=== PATIENT | female | born 1950 | race Caucasian/White ===

== ENCOUNTER 2016-08-24 10:57 | Outpatient (CLI) | payer MEDICARE | END 2016-08-24 10:58 | disposition home or self-care (01) | DX: M05.79 Rheumatoid arthritis with rheumatoid factor of multiple sites without organ or systems involvement (principal); Z79.899 Other long term (current) drug therapy; M06.9 Rheumatoid arthritis, unspecified ==

== ENCOUNTER 2016-11-05 08:33 | Outpatient (CLI) | payer MEDICARE | END 2016-11-05 08:34 | disposition home or self-care (01) | DX: M06.9 Rheumatoid arthritis, unspecified (principal); Z79.899 Other long term (current) drug therapy ==

== ENCOUNTER 2017-01-11 10:08 | Outpatient (CLI) | payer MEDICARE | END 2017-01-11 10:09 | disposition home or self-care (01) | DX: R59.9 Enlarged lymph nodes, unspecified (principal) ==

== ENCOUNTER 2017-02-10 09:15 | Outpatient (CLI) | payer MEDICARE ==
[2017-02-10 17:56] LABS: ALBUMIN/GLOBULIN RATIO 1.7 (1.0-2.2); BILIRUBIN,TOTAL 0.8 mg/dL (0.2-1.0); CREATININE 0.7 mg/dL (0.4-1.0); POTASSIUM 4.6 mmol/L (3.5-5.0); TOTAL PROTEIN 6.7 g/dL (6.7-8.2)
[2017-02-10 18:05] LABS: BASOPHILS # (AUTO) 0.1 10^3/uL (0.0-0.1); BASOPHILS % (AUTO) 1.3 %; EOSINOPHILS # (AUTO) 0.3 10^3/uL (0.0-0.7); EOSINOPHILS % (AUTO) 4.3 %; HCT - HEMATOCRIT 38.2 % (37.0-47.0); HGB - HEMOGLOBIN 11.8 g/dL (12.0-16.0); LYMPHOCYTES # (AUTO) 2.5 10^3/uL (1.5-3.5); LYMPHOCYTES % (AUTO) 39.1 %; MEAN CORPUSCULAR HEMOGLOBIN 20.5 pg (27.0-31.0); MEAN CORPUSCULAR HGB CONC 30.9 g/dL (32.0-36.0); MEAN CORPUSCULAR VOLUME 66.5 fL (81.0-99.0); MEAN PLATELET VOLUME 9.7 fL (7.9-10.8); MONOCYTES # (AUTO) 0.4 10^3/uL (0.0-1.0); MONOCYTES % (AUTO) 6.7 %; NEUTROPHILS # (AUTO) 3.1 10^3/uL (1.5-6.6); NEUTROPHILS % (AUTO) 48.6 %; NUCLEATED RED BLOOD CELLS AUTO 0.1 /100WBC; RED BLOOD COUNT 5.75 10^6/uL (4.20-5.40); UNCORRECTED WHITE BLOOD COUNT 6.4 x10^3/uL; WHITE BLOOD COUNT 6.4 x10^3/uL (4.8-10.8)
[2017-02-10 18:22] LABS: PLATELET ESTIMATE, MANUAL NORMAL (130-450,000) (NORMAL); PLATELET MORPHOLOGY NORMAL APPEARANCE (NORMAL)
== END 2017-02-10 09:16 | disposition home or self-care (01) ==
LOC: LAB.R 09:15
PROVIDERS: ATTEND Nurse Practitioner Primary Care
DX: M06.9 Rheumatoid arthritis, unspecified (principal); Z79.899 Other long term (current) drug therapy
CPT/HCPCS: 80053; 85025

== ENCOUNTER 2017-04-11 08:33 | Day surgery (SDC) | payer MEDICARE ==
[2017-04-11] MEDS ORDERED: LACTATED RINGERS 1,000 ML IV ONE (08:38)
[2017-04-11] MEDS ORDERED: MIDAZOLAM 2 MG/2 ML VIAL IVP ONE (10:40)
[2017-04-11] MEDS ORDERED: fentaNYL 100 MCG/2 ML VIAL IVP ONE (10:40)
[2017-04-11 12:00] VITALS: BP 106/65
[2017-04-11] MEDS ORDERED: ONDANSETRON ODT 4 MG TABLET ONE (12:10)
== END 2017-04-11 08:34 | disposition home or self-care (01) ==
LOC: SDS 08:33
PROVIDERS: ATTEND Surgery
PROC: 0DJD8ZZ Inspection of Lower Intestinal Tract, Via Natural or Artificial Opening Endoscopic (ICD-10-PCS; principal; 2017-04-11 09:45)
DX: Z12.11 Encounter for screening for malignant neoplasm of colon (principal); K64.8 Other hemorrhoids; K57.90 Diverticulosis of intestine, part unspecified, without perforation or abscess without bleeding; J45.909 Unspecified asthma, uncomplicated; Z87.891 Personal history of nicotine dependence
CPT/HCPCS: 45378; J7120; Q0162

== ENCOUNTER 2017-05-18 09:03 | Outpatient (CLI) | payer MEDICARE ==
[2017-05-18 13:47] LABS: BASOPHILS % (AUTO) 0.6 %; EOSINOPHILS # (AUTO) 0.2 10^3/uL (0.0-0.7); EOSINOPHILS % (AUTO) 3.2 %; HCT - HEMATOCRIT 35.9 % (37.0-47.0); HGB - HEMOGLOBIN 11.4 g/dL (12.0-16.0); LYMPHOCYTES # (AUTO) 2.3 10^3/uL (1.5-3.5); LYMPHOCYTES % (AUTO) 37.9 %; MEAN CORPUSCULAR HEMOGLOBIN 20.5 pg (27.0-31.0); MEAN CORPUSCULAR HGB CONC 31.7 g/dL (32.0-36.0); MEAN CORPUSCULAR VOLUME 64.8 fL (81.0-99.0); MEAN PLATELET VOLUME 9.6 fL (7.9-10.8); MONOCYTES # (AUTO) 0.5 10^3/uL (0.0-1.0); MONOCYTES % (AUTO) 8.1 %; NEUTROPHILS # (AUTO) 3.1 10^3/uL (1.5-6.6); NEUTROPHILS % (AUTO) 50.2 %; RED BLOOD COUNT 5.54 10^6/uL (4.20-5.40); RED CELL DISTRIBUTION WIDTH 17.1 % (12.0-15.0); UNCORRECTED WHITE BLOOD COUNT 6.1 x10^3/uL; WHITE BLOOD COUNT 6.1 x10^3/uL (4.8-10.8)
[2017-05-18 13:57] LABS: ALBUMIN/GLOBULIN RATIO 1.4 (1.0-2.2); BILIRUBIN,TOTAL 0.6 mg/dL (0.2-1.0); CALCIUM 9.4 mg/dL (8.5-10.3); CREATININE 0.6 mg/dL (0.4-1.0); POTASSIUM 4.1 mmol/L (3.5-5.0); TOTAL PROTEIN 6.8 g/dL (6.7-8.2)
== END 2017-05-18 09:04 | disposition home or self-care (01) ==
LOC: LAB.R 09:03
PROVIDERS: ATTEND Nurse Practitioner Primary Care
DX: M06.9 Rheumatoid arthritis, unspecified (principal); Z79.899 Other long term (current) drug therapy
CPT/HCPCS: 80053; 85025

== ENCOUNTER 2017-08-09 08:59 | Outpatient (CLI) | payer MEDICARE ==
[2017-08-09 13:19] LABS: CHOL/HDL RATIO 3.2 (<4.4); CHOLESTEROL 231 mg/dL; HDL CHOLESTEROL 72 mg/dL; LDL CHOLESTEROL,CALCULATED 143 mg/dL; VLDL CHOLESTEROL 16 mg/dL
[2017-08-09 13:26] LABS: BASOPHILS % (AUTO) 0.8 %; EOSINOPHILS # (AUTO) 0.2 10^3/uL (0.0-0.7); EOSINOPHILS % (AUTO) 3.3 %; HGB - HEMOGLOBIN 11.5 g/dL (12.0-16.0); LYMPHOCYTES # (AUTO) 1.2 10^3/uL (1.5-3.5); LYMPHOCYTES % (AUTO) 21.9 %; MEAN CORPUSCULAR HEMOGLOBIN 20.5 pg (27.0-31.0); MEAN CORPUSCULAR HGB CONC 31.5 g/dL (32.0-36.0); MEAN CORPUSCULAR VOLUME 65.1 fL (81.0-99.0); MEAN PLATELET VOLUME 9.6 fL (7.9-10.8); MONOCYTES # (AUTO) 0.6 10^3/uL (0.0-1.0); MONOCYTES % (AUTO) 11.3 %; NEUTROPHILS # (AUTO) 3.5 10^3/uL (1.5-6.6); NEUTROPHILS % (AUTO) 62.7 %; PLT - PLATELET COUNT 309 10^3/uL (130-450); RED BLOOD COUNT 5.59 10^6/uL (4.20-5.40); RED CELL DISTRIBUTION WIDTH 17.1 % (12.0-15.0); WHITE BLOOD COUNT 5.7 x10^3/uL (4.8-10.8)
[2017-08-09 13:28] LABS: ALBUMIN 4.1 g/dL (3.2-5.5); ALBUMIN/GLOBULIN RATIO 1.5 (1.0-2.2); BILIRUBIN,TOTAL 0.9 mg/dL (0.2-1.0); CALCIUM 9.4 mg/dL (8.5-10.3); CREATININE 0.8 mg/dL (0.4-1.0); TOTAL PROTEIN 6.9 g/dL (6.7-8.2)
== END 2017-08-09 09:00 | disposition home or self-care (01) ==
LOC: LAB.R 08:59
PROVIDERS: ATTEND Nurse Practitioner Primary Care
DX: Z13.29 Encounter for screening for other suspected endocrine disorder (principal); E78.5 Hyperlipidemia, unspecified; M06.9 Rheumatoid arthritis, unspecified; Z79.899 Other long term (current) drug therapy
CPT/HCPCS: 80053; 80061; 83721; 84443; 85025

== ENCOUNTER 2017-10-24 11:53 | Outpatient (CLI) | payer MEDICARE ==
--- NOTE | 2017-10-24 13:23 | XRAY Report ---
RIGHT HIP AND PELVIS: 10/24/2017 CLINICAL INDICATION: Hip pain. FINDINGS: Frontal view of the hips and pelvis and frogleg lateral view of the right hip demonstrate moderate osteoarthritis. There is no evidence of acute fracture or dislocation. No radiopaque foreign body seen in the soft tissues. IMPRESSION: MODERATE OSTEOARTHRITIS. TD: 10/24/2017 13:22
--- NOTE | 2017-10-24 13:23 | XRAY Report ---
THREE VIEW LUMBAR SPINE: 10/24/2017 CLINICAL INDICATION: Back pain. FINDINGS: AP, lateral, coned down views of the lumbar spine demonstrate mild degenerative disk disease. There is no evidence of compression fracture. Mild degenerative levoscoliosis is seen. The bowel gas pattern appears unremarkable. IMPRESSION: MILD DEGENERATIVE CHANGES, WITH DEGENERATIVE LEVOSCOLIOSIS. TD: 10/24/2017 13:21
== END 2017-10-24 11:54 | disposition home or self-care (01) ==
LOC: DI 11:53
PROVIDERS: ATTEND Physician Assistant Medical
DX: M51.36 Other intervertebral disc degeneration, lumbar region (principal); M16.11 Unilateral primary osteoarthritis, right hip
CPT/HCPCS: 72100

== ENCOUNTER 2017-11-11 08:00 | Outpatient (CLI) | payer MEDICARE ==
[2017-11-11 13:42] LABS: ALBUMIN 3.8 g/dL (3.2-5.5); ALBUMIN/GLOBULIN RATIO 1.4 (1.0-2.2); BILIRUBIN,TOTAL 0.6 mg/dL (0.2-1.0); CREATININE 0.7 mg/dL (0.4-1.0); TOTAL PROTEIN 6.6 g/dL (6.7-8.2)
[2017-11-11 14:08] LABS: BASOPHILS # (AUTO) 0.2 10^3/uL (0.0-0.1); BASOPHILS % (AUTO) 2.1 %; EOSINOPHILS # (AUTO) 0.2 10^3/uL (0.0-0.7); EOSINOPHILS % (AUTO) 2.3 %; HGB - HEMOGLOBIN 11.3 g/dL (12.0-16.0); LYMPHOCYTES # (AUTO) 2.9 10^3/uL (1.5-3.5); LYMPHOCYTES % (AUTO) 28.4 %; MEAN CORPUSCULAR HEMOGLOBIN 20.4 pg (27.0-31.0); MEAN CORPUSCULAR HGB CONC 30.8 g/dL (32.0-36.0); MONOCYTES # (AUTO) 0.5 10^3/uL (0.0-1.0); MONOCYTES % (AUTO) 5.1 %; NEUTROPHILS # (AUTO) 6.3 10^3/uL (1.5-6.6); NEUTROPHILS % (AUTO) 62.1 %; PLT - PLATELET COUNT 393 10^3/uL (130-450); RED BLOOD COUNT 5.53 10^6/uL (4.20-5.40); RED CELL DISTRIBUTION WIDTH 16.7 % (12.0-15.0); WHITE BLOOD COUNT 10.2 x10^3/uL (4.8-10.8)
== END 2017-11-11 08:01 | disposition home or self-care (01) ==
LOC: LAB.R 08:00
PROVIDERS: ATTEND Nurse Practitioner Primary Care
DX: M06.9 Rheumatoid arthritis, unspecified (principal); Z79.899 Other long term (current) drug therapy
CPT/HCPCS: 80053; 85025

== ENCOUNTER 2018-02-16 09:19 | Outpatient (CLI) | payer MEDICARE ==
[2018-02-16 13:09] LABS: ALBUMIN 4.4 g/dL (3.2-5.5); ALBUMIN/GLOBULIN RATIO 1.6 (1.0-2.2); BASOPHILS % (AUTO) 0.6 %; BILIRUBIN,TOTAL 0.7 mg/dL (0.2-1.0); CALCIUM 9.5 mg/dL (8.5-10.3); CREATININE 0.6 mg/dL (0.4-1.0); EOSINOPHILS # (AUTO) 0.2 10^3/uL (0.0-0.7); EOSINOPHILS % (AUTO) 3.1 %; HGB - HEMOGLOBIN 11.8 g/dL (12.0-16.0); LYMPHOCYTES # (AUTO) 2.5 10^3/uL (1.5-3.5); LYMPHOCYTES % (AUTO) 35.8 %; MEAN CORPUSCULAR HEMOGLOBIN 20.3 pg (27.0-31.0); MEAN CORPUSCULAR HGB CONC 31.3 g/dL (32.0-36.0); MEAN CORPUSCULAR VOLUME 64.8 fL (81.0-99.0); MEAN PLATELET VOLUME 9.6 fL (7.9-10.8); MONOCYTES # (AUTO) 0.5 10^3/uL (0.0-1.0); MONOCYTES % (AUTO) 6.7 %; NEUTROPHILS # (AUTO) 3.8 10^3/uL (1.5-6.6); NEUTROPHILS % (AUTO) 53.8 %; PLT - PLATELET COUNT 386 10^3/uL (130-450); RED BLOOD COUNT 5.81 10^6/uL (4.20-5.40); RED CELL DISTRIBUTION WIDTH 16.9 % (12.0-15.0); TOTAL PROTEIN 7.2 g/dL (6.7-8.2); WHITE BLOOD COUNT 7.1 x10^3/uL (4.8-10.8)
[2018-02-16 13:55] LABS: PLATELET ESTIMATE, MANUAL NORMAL (130-450,000) (NORMAL); PLATELET MORPHOLOGY NORMAL APPEARANCE (NORMAL)
== END 2018-02-16 09:20 | disposition home or self-care (01) ==
LOC: LAB.R 09:19
PROVIDERS: ATTEND Nurse Practitioner Primary Care
DX: M06.9 Rheumatoid arthritis, unspecified (principal); Z79.899 Other long term (current) drug therapy
CPT/HCPCS: 80053; 85025

== ENCOUNTER 2018-03-08 10:10 | Outpatient (CLI) | payer MEDICARE ==
[2018-03-09 11:43] LABS: HEPATITIS C ANTIBODY NON-REACTIVE (NON-REACTIVE)
[2018-03-09 11:45] LABS: HEPATITIS B SURFACE ANTIGEN NON-REACTIVE (NON-REACTIVE)
== END 2018-03-08 10:11 | disposition home or self-care (01) ==
LOC: LAB 10:10
PROVIDERS: ATTEND Internal Medicine Rheumatology
DX: M05.79 Rheumatoid arthritis with rheumatoid factor of multiple sites without organ or systems involvement (principal); Z79.899 Other long term (current) drug therapy
CPT/HCPCS: 36415; 81599; 86480; 86803; 87340

== ENCOUNTER 2018-05-03 10:38 | Outpatient (CLI) | payer MEDICARE ==
[2018-05-03 11:47] LABS: CHOL/HDL RATIO 3.4 (<4.4); CHOLESTEROL 217 mg/dL; HDL CHOLESTEROL 63 mg/dL; LDL CHOLESTEROL,CALCULATED 142 mg/dL; LDL/HDL RATIO 2.3 (<4.4); VLDL CHOLESTEROL 12 mg/dL
== END 2018-05-03 10:39 | disposition home or self-care (01) ==
LOC: LAB 10:38
PROVIDERS: ATTEND Internal Medicine Rheumatology
DX: M05.79 Rheumatoid arthritis with rheumatoid factor of multiple sites without organ or systems involvement (principal); Z79.899 Other long term (current) drug therapy
CPT/HCPCS: 36415; 80061; 83721

== ENCOUNTER 2018-05-31 08:00 | Outpatient (CLI) | payer MEDICARE ==
[2018-05-31 17:47] LABS: BASOPHILS % (AUTO) 1.2 %; EOSINOPHILS % (AUTO) 2.8 %; HGB - HEMOGLOBIN 11.3 g/dL (12.0-16.0); MEAN CORPUSCULAR HEMOGLOBIN 20.5 pg (27.0-31.0); MEAN CORPUSCULAR HGB CONC 31.2 g/dL (32.0-36.0); MEAN CORPUSCULAR VOLUME 65.5 fL (81.0-99.0); MEAN PLATELET VOLUME 9.6 fL (7.9-10.8); MONOCYTES % (AUTO) 6.2 %; NEUTROPHILS % (AUTO) 50.8 %; PLT - PLATELET COUNT 320 10^3/uL (130-450); RED BLOOD COUNT 5.51 10^6/uL (4.20-5.40); WHITE BLOOD COUNT 5.9 x10^3/uL (4.8-10.8)
[2018-05-31 17:50] LABS: ABNORMAL LYMPHS % (MANUAL) 0 %; BAND NEUTROPHILS % (MANUAL) 0 %
[2018-05-31 17:58] LABS: ALBUMIN 4.4 g/dL (3.2-5.5); ALBUMIN/GLOBULIN RATIO 1.8 (1.0-2.2); BILIRUBIN,TOTAL 0.8 mg/dL (0.2-1.0); CALCIUM 9.4 mg/dL (8.5-10.3); CREATININE 0.6 mg/dL (0.4-1.0); TOTAL PROTEIN 6.9 g/dL (6.7-8.2)
[2018-05-31 18:04] LABS: BASOPHILS # (MANUAL) 0.1 10^3/uL (0-0.1); BASOPHILS % (MANUAL) 1 %; EOSINOPHILS # (MANUAL) 0.3 10^3/uL (0-0.7); LYMPHOCYTES # (MANUAL) 1.8 10^3/uL (1.5-3.5); LYMPHOCYTES % (MANUAL) 30 %; MONOCYTES # (MANUAL) 0.3 10^3/uL (0.0-1.0); NEUTROPHILS # (MANUAL) 3.5 10^3/uL (1.5-6.6); NEUTROPHILS % (MANUAL) 59 %
[2018-05-31 18:05] LABS: DIFFERENTIAL COMMENT MANUAL DIFFERENTIAL; PLATELET ESTIMATE, MANUAL NORMAL (130-450,000) (NORMAL); PLATELET MORPHOLOGY NORMAL APPEARANCE (NORMAL)
== END 2018-05-31 08:01 | disposition home or self-care (01) ==
LOC: LAB.R 08:00
PROVIDERS: ATTEND Nurse Practitioner Primary Care
DX: M06.9 Rheumatoid arthritis, unspecified (principal); Z79.899 Other long term (current) drug therapy
CPT/HCPCS: 80053; 85025

== ENCOUNTER 2018-08-16 09:10 | Outpatient (CLI) | payer MEDICARE ==
[2018-08-16 09:25] LABS: BASOPHILS % (AUTO) 0.5 %; EOSINOPHILS % (AUTO) 2.9 %; HGB - HEMOGLOBIN 11.4 g/dL (12.0-16.0); LYMPHOCYTES % (AUTO) 34.2 %; MEAN CORPUSCULAR HEMOGLOBIN 20.6 pg (27.0-31.0); MEAN CORPUSCULAR HGB CONC 31.4 g/dL (32.0-36.0); MEAN CORPUSCULAR VOLUME 65.6 fL (81.0-99.0); MEAN PLATELET VOLUME 8.1 fL (7.9-10.8); MONOCYTES % (AUTO) 6.4 %; PLT - PLATELET COUNT 348 10^3/uL (130-450); RED BLOOD COUNT 5.55 10^6/uL (4.20-5.40); RED CELL DISTRIBUTION WIDTH 18.7 % (12.0-15.0); WHITE BLOOD COUNT 7.1 x10^3/uL (4.8-10.8)
[2018-08-16 09:28] LABS: ABNORMAL LYMPHS % (MANUAL) 0 %; BAND NEUTROPHILS % (MANUAL) 0 %
[2018-08-16 09:39] LABS: CHOL/HDL RATIO 2.8 (<4.4); CHOLESTEROL 271 mg/dL; HDL CHOLESTEROL 96 mg/dL; LDL CHOLESTEROL,CALCULATED 163 mg/dL; LDL/HDL RATIO 1.7 (<4.4); VLDL CHOLESTEROL 12 mg/dL
[2018-08-16 10:00] LABS: ALBUMIN 4.2 g/dL (3.2-5.5); ALBUMIN/GLOBULIN RATIO 1.4 (1.0-2.2); CALCIUM 9.6 mg/dL (8.5-10.3); CREATININE 0.7 mg/dL (0.4-1.0); TOTAL PROTEIN 7.1 g/dL (6.7-8.2)
[2018-08-16 10:02] LABS: EOSINOPHILS # (MANUAL) 0.1 10^3/uL (0-0.7); LYMPHOCYTES # (MANUAL) 2.8 10^3/uL (1.5-3.5); LYMPHOCYTES % (MANUAL) 37 %; MONOCYTES # (MANUAL) 0.4 10^3/uL (0.0-1.0); NEUTROPHILS # (MANUAL) 3.8 10^3/uL (1.5-6.6); NEUTROPHILS % (MANUAL) 53 %
[2018-08-16 10:05] LABS: DIFFERENTIAL COMMENT MANUAL DIFFERENTIAL
== END 2018-08-16 09:11 | disposition home or self-care (01) ==
LOC: LAB 09:10
PROVIDERS: ATTEND Nurse Practitioner Primary Care
DX: E78.5 Hyperlipidemia, unspecified (principal); M06.9 Rheumatoid arthritis, unspecified; Z79.899 Other long term (current) drug therapy
CPT/HCPCS: 36415; 80053; 80061; 83721; 85025

== ENCOUNTER 2018-10-03 12:57 | Outpatient (CLI) | payer MEDICARE ==
--- NOTE | 2018-10-04 08:59 | Mammography Report ---
Reason: SCREENING FOR BREAST CANCER Procedure Date: 10/03/2018 Accession Number: [id number] / [id number] Procedure: SAM - Screening Mammo w/Rell CPT Code: FULL RESULT: EXAM: Screening Mammo w/Rell DATE: 10/03/2018 2:32 PM CLINICAL HISTORY: Routine screening. No reported personal or family history of breast cancer. TECHNIQUE: (B) - Bilateral Bilateral CC and MLO views were obtained. COMPARISON: 07/02/2016 through 06/14/2013 PARENCHYMAL PATTERN: (A) - The breasts demonstrate scattered fibroglandular densities bilaterally. FINDINGS: Bilateral breasts: There are no suspicious masses, calcifications, or areas of distortion. IMPRESSION: Negative examination. BI-RADS category1 RECOMMENDATION: (ANNUAL) - Recommend routine annual screening mammography. BI-RADS CATEGORY: (1) - Negative STANDARD QUALIFYING STATEMENTS: 1. This examination was not reviewed with the aid of Computer-Aided Detection (CAD). 2. A negative or benign imaging report should not preclude biopsy if clinically suspicious findings are present. 3. Dense breasts may obscure an underlying neoplasm. 4. This examination was reviewed with the aid of 3D breast imaging (tomosynthesis).
== END 2018-10-03 12:58 | disposition home or self-care (01) ==
LOC: DI 12:57
PROVIDERS: ATTEND Nurse Practitioner Primary Care
DX: Z12.31 Encounter for screening mammogram for malignant neoplasm of breast (principal)
CPT/HCPCS: 77063; 77067

== ENCOUNTER 2018-10-03 14:10 | Outpatient (CLI) | payer MEDICARE ==
--- NOTE | 2018-10-03 17:21 | DEXA Report ---
Reason: SCREENING FOR OSTEOPOROSIS Procedure Date: 10/03/2018 Accession Number: [id number] / [id number] Procedure: DEX - Dexa Spine and/or Hip CPT Code: FULL RESULT: EXAM: Dexa Spine and/or Hip DATE: 10/03/2018 2:36 PM CLINICAL HISTORY: SCREENING FOR OSTEOPOROSIS TECHNIQUE: Dual energy x-ray absorptiometry (DXA) was performed on a CelePost System. Regions measured are the AP Spine, femoral neck, and if needed forearm. COMPARISON: None. In accordance with the International Society for Clinical Densitometry (ISCD) guidelines, data from previous exams may be reanalyzed using current recommendations and techniques. This is done to allow a more accurate basis for comparison with the current study. FINDINGS: The data for the lumbar spine is as follows: BMD (g/cm/cm) T-SCORE Z-SCORE REGION L1 1.207 0.6 1.9 L2 1.054 -1.2 0.1 L3 1.232 0.3 1.5 L4 1.265 0.5 1.8 TOTAL 1.192 0.1 1.4 NOTE: All evaluable vertebrae are used for classification The data for the hip is as follows: BMD (g/cm/cm) T-SCORE Z-SCORE REGION Neck 1.065 0.2 1.6 TOTAL 1.074 0.5 1.6 NOTE: The femoral neck or total proximal femur, whichever is lowest, is used for classification. IMPRESSION: THE WHO CLASSIFICATION BASED ON THE INTERNATIONAL REFERENCE STANDARD IS NORMAL. THE FRACTURE RISK IS NOT INCREASED. RECOMMENDATION: Patients with diagnosis of osteoporosis or osteopenia should have regular bone mineral density assessment. For those eligible for Medicare, routine testing is allowed once every 2 years. Testing frequency can be increased for patients who have rapidly progressing disease or for those who are receiving medical therapy to restore bone mass. COMMENT: World Health Organization (WHO) definitions for osteoporosis and osteopenia: NORMAL BMD: T-score at -1.0 or higher, fracture risk is low OSTEOPENIA BMD: T-score between -1.0 and -2.5, fracture risk is increased. OSTEOPOROSIS BMD: T-score at -2.5 or lower, fracture risk is high. National Osteoporosis Foundation recommends: 1. Obtain adequate dietary calcium (at least 1200 mg per day) and vitamin D (400-800 international units per day). 2. Participate, as appropriate, in regular weightbearing and muscle-strengthening exercise. 3. Avoid tobacco use and reduce alcohol and caffeine intake. 4. For more detailed information see the website at www.NOF.org.
== END 2018-10-03 14:11 | disposition home or self-care (01) ==
LOC: DI 14:10
PROVIDERS: ATTEND Nurse Practitioner Primary Care
DX: Z13.820 Encounter for screening for osteoporosis (principal); Z78.0 Asymptomatic menopausal state
CPT/HCPCS: 77080

== ENCOUNTER 2018-12-05 09:48 | Outpatient (CLI) | payer MEDICARE ==
[2018-12-05 10:06] LABS: BASOPHILS % (AUTO) 0.5 %; EOSINOPHILS # (AUTO) 0.1 10^3/uL (0.0-0.7); EOSINOPHILS % (AUTO) 2.1 %; HGB - HEMOGLOBIN 11.8 g/dL (12.0-16.0); LYMPHOCYTES # (AUTO) 2.2 10^3/uL (1.5-3.5); LYMPHOCYTES % (AUTO) 30.9 %; MEAN CORPUSCULAR HGB CONC 31.4 g/dL (32.0-36.0); MEAN CORPUSCULAR VOLUME 66.8 fL (81.0-99.0); MEAN PLATELET VOLUME 8.5 fL (7.9-10.8); MONOCYTES # (AUTO) 0.4 10^3/uL (0.0-1.0); MONOCYTES % (AUTO) 5.8 %; NEUTROPHILS # (AUTO) 4.3 10^3/uL (1.5-6.6); NEUTROPHILS % (AUTO) 60.7 %; PLT - PLATELET COUNT 365 10^3/uL (130-450); RED BLOOD COUNT 5.65 10^6/uL (4.20-5.40); RED CELL DISTRIBUTION WIDTH 16.6 % (12.0-15.0); WHITE BLOOD COUNT 7.1 x10^3/uL (4.8-10.8)
[2018-12-05 10:11] LABS: ALBUMIN 4.4 g/dL (3.2-5.5); ALBUMIN/GLOBULIN RATIO 1.6 (1.0-2.2); BILIRUBIN,TOTAL 0.9 mg/dL (0.2-1.0); CALCIUM 9.5 mg/dL (8.5-10.3); CREATININE 0.7 mg/dL (0.4-1.0); TOTAL PROTEIN 7.2 g/dL (6.7-8.2)
[2018-12-05 10:27] LABS: PLATELET ESTIMATE, MANUAL NORMAL (130-450,000) (NORMAL); PLATELET MORPHOLOGY NORMAL APPEARANCE (NORMAL)
== END 2018-12-05 09:49 | disposition home or self-care (01) ==
LOC: LAB 09:48
PROVIDERS: ATTEND Internal Medicine Rheumatology
DX: M06.9 Rheumatoid arthritis, unspecified (principal); Z79.899 Other long term (current) drug therapy
CPT/HCPCS: 36415; 80053; 85025

== ENCOUNTER 2019-04-16 09:33 | Outpatient (CLI) | payer MEDICARE ==
[2019-04-16 10:18] LABS: BASOPHILS % (AUTO) 0.7 %; EOSINOPHILS # (AUTO) 0.2 10^3/uL (0.0-0.7); EOSINOPHILS % (AUTO) 3.4 %; HGB - HEMOGLOBIN 10.8 g/dL (12.0-16.0); LYMPHOCYTES # (AUTO) 1.6 10^3/uL (1.5-3.5); LYMPHOCYTES % (AUTO) 26.6 %; MEAN CORPUSCULAR HEMOGLOBIN 20.9 pg (27.0-31.0); MEAN CORPUSCULAR HGB CONC 30.8 g/dL (32.0-36.0); MEAN CORPUSCULAR VOLUME 67.9 fL (81.0-99.0); MEAN PLATELET VOLUME 10.8 fL (7.9-10.8); MONOCYTES # (AUTO) 0.5 10^3/uL (0.0-1.0); MONOCYTES % (AUTO) 7.6 %; NEUTROPHILS # (AUTO) 3.6 10^3/uL (1.5-6.6); NEUTROPHILS % (AUTO) 61.2 %; PLT - PLATELET COUNT 353 10^3/uL (130-450); RED BLOOD COUNT 5.17 10^6/uL (4.20-5.40); RED CELL DISTRIBUTION WIDTH 17.7 % (12.0-15.0); WHITE BLOOD COUNT 5.9 x10^3/uL (4.8-10.8)
[2019-04-16 10:46] LABS: ALBUMIN 4.2 g/dL (3.2-5.5); ALBUMIN/GLOBULIN RATIO 1.7 (1.0-2.2); BILIRUBIN,TOTAL 0.6 mg/dL (0.2-1.0); CALCIUM 9.4 mg/dL (8.5-10.3); CREATININE 0.7 mg/dL (0.4-1.0); TOTAL PROTEIN 6.7 g/dL (6.7-8.2)
== END 2019-04-16 09:34 | disposition home or self-care (01) ==
LOC: LAB 09:33
PROVIDERS: ATTEND Internal Medicine Rheumatology
DX: Z79.899 Other long term (current) drug therapy (principal); M06.9 Rheumatoid arthritis, unspecified
CPT/HCPCS: 36415; 80053; 85025

== ENCOUNTER 2019-08-14 09:55 | Outpatient (CLI) | payer MEDICARE ==
[2019-08-14 10:09] LABS: BASOPHILS % (AUTO) 0.4 %; EOSINOPHILS # (AUTO) 0.2 10^3/uL (0.0-0.7); EOSINOPHILS % (AUTO) 2.9 %; HGB - HEMOGLOBIN 11.4 g/dL (12.0-16.0); LYMPHOCYTES # (AUTO) 1.5 10^3/uL (1.5-3.5); LYMPHOCYTES % (AUTO) 22.2 %; MEAN CORPUSCULAR HGB CONC 30.7 g/dL (32.0-36.0); MEAN CORPUSCULAR VOLUME 68.2 fL (81.0-99.0); MEAN PLATELET VOLUME 9.9 fL (7.9-10.8); MONOCYTES # (AUTO) 0.5 10^3/uL (0.0-1.0); NEUTROPHILS # (AUTO) 4.6 10^3/uL (1.5-6.6); NEUTROPHILS % (AUTO) 66.9 %; PLT - PLATELET COUNT 387 10^3/uL (130-450); RED BLOOD COUNT 5.44 10^6/uL (4.20-5.40); RED CELL DISTRIBUTION WIDTH 18.4 % (12.0-15.0); WHITE BLOOD COUNT 6.9 x10^3/uL (4.8-10.8)
[2019-08-14 10:39] LABS: PLATELET ESTIMATE, MANUAL NORMAL (130-450,000) (NORMAL); PLATELET MORPHOLOGY NORMAL APPEARANCE (NORMAL)
[2019-08-14 10:41] LABS: ALBUMIN 4.3 g/dL (3.2-5.5); ALBUMIN/GLOBULIN RATIO 1.5 (1.0-2.2); BILIRUBIN,TOTAL 0.8 mg/dL (0.2-1.0); CALCIUM 9.4 mg/dL (8.5-10.3); CREATININE 0.6 mg/dL (0.4-1.0); HB2 TOTAL 11.3 g/dL; HEMOGLOBIN A1C 0.41 g/dL; HEMOGLOBIN A1C % 5.5 % (4.6-6.2); TOTAL PROTEIN 7.2 g/dL (6.7-8.2)
== END 2019-08-14 09:56 | disposition home or self-care (01) ==
LOC: LAB 09:55
PROVIDERS: ATTEND Family Medicine
DX: M06.9 Rheumatoid arthritis, unspecified (principal); J45.998 Other asthma; D56.3 Thalassemia minor; E78.5 Hyperlipidemia, unspecified; Z79.899 Other long term (current) drug therapy
CPT/HCPCS: 36415; 80053; 83036; 84443; 85025

== ENCOUNTER 2019-11-20 10:45 | Outpatient (CLI) | payer MEDICARE ==
[2019-11-20 11:30] LABS: BASOPHILS % (AUTO) 0.6 %; EOSINOPHILS # (AUTO) 0.2 10^3/uL (0.0-0.7); EOSINOPHILS % (AUTO) 2.7 %; HGB - HEMOGLOBIN 12.1 g/dL (12.0-16.0); LYMPHOCYTES # (AUTO) 1.2 10^3/uL (1.5-3.5); LYMPHOCYTES % (AUTO) 19.2 %; MEAN CORPUSCULAR HEMOGLOBIN 21.2 pg (27.0-31.0); MEAN CORPUSCULAR HGB CONC 31.4 g/dL (32.0-36.0); MEAN CORPUSCULAR VOLUME 67.5 fL (81.0-99.0); MEAN PLATELET VOLUME 10.5 fL (7.9-10.8); MONOCYTES # (AUTO) 0.5 10^3/uL (0.0-1.0); MONOCYTES % (AUTO) 8.4 %; NEUTROPHILS # (AUTO) 4.4 10^3/uL (1.5-6.6); NEUTROPHILS % (AUTO) 68.8 %; PLT - PLATELET COUNT 402 10^3/uL (130-450); RED CELL DISTRIBUTION WIDTH 18.2 % (12.0-15.0); WHITE BLOOD COUNT 6.4 x10^3/uL (4.8-10.8)
[2019-11-20 11:51] LABS: ALBUMIN 4.5 g/dL (3.2-5.5); ALBUMIN/GLOBULIN RATIO 1.6 (1.0-2.2); BILIRUBIN,TOTAL 0.9 mg/dL (0.2-1.0); CALCIUM 9.6 mg/dL (8.5-10.3); CREATININE 0.6 mg/dL (0.4-1.0); TOTAL PROTEIN 7.4 g/dL (6.7-8.2)
== END 2019-11-20 10:46 | disposition home or self-care (01) ==
LOC: LAB 10:45
PROVIDERS: ATTEND Internal Medicine Rheumatology
DX: M06.9 Rheumatoid arthritis, unspecified (principal); Z79.899 Other long term (current) drug therapy
CPT/HCPCS: 36415; 80053; 85025

== ENCOUNTER 2020-02-28 09:01 | Outpatient (CLI) | payer MEDICARE ==
[2020-02-28 09:44] LABS: BASOPHILS % (AUTO) 0.5 %; EOSINOPHILS # (AUTO) 0.2 10^3/uL (0.0-0.7); EOSINOPHILS % (AUTO) 3.2 %; HGB - HEMOGLOBIN 11.5 g/dL (12.0-16.0); LYMPHOCYTES # (AUTO) 1.5 10^3/uL (1.5-3.5); LYMPHOCYTES % (AUTO) 25.1 %; MEAN CORPUSCULAR HEMOGLOBIN 21.3 pg (27.0-31.0); MEAN CORPUSCULAR HGB CONC 31.5 g/dL (32.0-36.0); MEAN CORPUSCULAR VOLUME 67.6 fL (81.0-99.0); MEAN PLATELET VOLUME 10.2 fL (7.9-10.8); MONOCYTES # (AUTO) 0.5 10^3/uL (0.0-1.0); MONOCYTES % (AUTO) 7.6 %; NEUTROPHILS # (AUTO) 3.7 10^3/uL (1.5-6.6); NEUTROPHILS % (AUTO) 62.9 %; PLT - PLATELET COUNT 376 10^3/uL (130-450); RED CELL DISTRIBUTION WIDTH 16.9 % (12.0-15.0); WHITE BLOOD COUNT 5.9 x10^3/uL (4.8-10.8)
[2020-02-28 10:00] LABS: BILIRUBIN,TOTAL 0.9 mg/dL (0.2-1.0); CREATININE 0.7 mg/dL (0.4-1.0)
[2020-02-28 10:17] LABS: PLATELET ESTIMATE, MANUAL NORMAL (130-450,000) (NORMAL); PLATELET MORPHOLOGY NORMAL APPEARANCE (NORMAL)
[2020-02-28 11:25] LABS: ALBUMIN 4.6 g/dL (3.2-5.5); ALBUMIN/GLOBULIN RATIO 1.8 (1.0-2.2); CALCIUM 9.6 mg/dL (8.5-10.3); TOTAL PROTEIN 7.1 g/dL (6.7-8.2)
== END 2020-02-28 09:02 | disposition home or self-care (01) ==
LOC: LAB 09:01
PROVIDERS: ATTEND Internal Medicine Rheumatology
DX: M06.9 Rheumatoid arthritis, unspecified (principal); Z79.899 Other long term (current) drug therapy
CPT/HCPCS: 36415; 80053; 85025; 85610

== ENCOUNTER 2020-06-12 11:07 | Outpatient (CLI) | payer MEDICARE ==
[2020-06-12 11:18] LABS: BASOPHILS % (AUTO) 0.3 %; EOSINOPHILS # (AUTO) 0.1 10^3/uL (0.0-0.7); EOSINOPHILS % (AUTO) 1.5 %; HGB - HEMOGLOBIN 11.4 g/dL (12.0-16.0); LYMPHOCYTES # (AUTO) 1.1 10^3/uL (1.5-3.5); LYMPHOCYTES % (AUTO) 13.8 %; MEAN CORPUSCULAR HGB CONC 31.1 g/dL (32.0-36.0); MEAN CORPUSCULAR VOLUME 67.7 fL (81.0-99.0); MEAN PLATELET VOLUME 10.2 fL (7.9-10.8); MONOCYTES # (AUTO) 0.7 10^3/uL (0.0-1.0); MONOCYTES % (AUTO) 8.9 %; NEUTROPHILS # (AUTO) 5.9 10^3/uL (1.5-6.6); PLT - PLATELET COUNT 353 10^3/uL (130-450); RED BLOOD COUNT 5.42 10^6/uL (4.20-5.40); RED CELL DISTRIBUTION WIDTH 17.8 % (12.0-15.0); WHITE BLOOD COUNT 7.9 x10^3/uL (4.8-10.8)
[2020-06-12 11:32] LABS: ALBUMIN 4.5 g/dL (3.2-5.5); ALBUMIN/GLOBULIN RATIO 1.6 (1.0-2.2); BILIRUBIN,TOTAL 1.1 mg/dL (0.2-1.0); CALCIUM 9.6 mg/dL (8.5-10.3); CREATININE 0.7 mg/dL (0.4-1.0); TOTAL PROTEIN 7.3 g/dL (6.7-8.2)
[2020-06-12 11:50] LABS: PLATELET ESTIMATE, MANUAL NORMAL (130-450,000) (NORMAL); PLATELET MORPHOLOGY NORMAL APPEARANCE (NORMAL)
== END 2020-06-12 11:08 | disposition home or self-care (01) ==
LOC: LAB 11:07
PROVIDERS: ATTEND Internal Medicine Rheumatology
DX: Z79.899 Other long term (current) drug therapy (principal); M06.9 Rheumatoid arthritis, unspecified
CPT/HCPCS: 80053; 85025

== ENCOUNTER 2020-08-07 12:36 | Outpatient (CLI) | payer MEDICARE ==
--- NOTE | 2020-08-08 07:57 | Mammography Report ---
BILATERAL DIGITAL SCREENING MAMMOGRAM 3D/2D: 08/07/2020 CLINICAL: Routine screening. Comparison is made to exams dated: 10/03/2018 mammogram, 07/02/2016 mammogram, and 06/20/2014 mammogra m - [facility]. The tissue of both breasts is predominantly fatty. No significant masses, calcifications, or other findings are seen in either breast. There has been no significant interval change. IMPRESSION: NEGATIVE There is no mammographic evidence of malignancy. A 1 year screening mammogram is recommended. This exam was interpreted at Station ID: [id number]. NOTE: For mammograms, a report in lay terms will be sent to the patient. Approximately 15% of breast malignancies will not be visualized mammographically. In the management of a palpable breast mass, a negative mammogram must not discourage biopsy of a clinically suspicious lesion. Electronically Signed By: Greg Greenberg M.D. ar/[email or web address]:08/07/2020 13:01:34 ACR BI-RADS Category 1: Negative 3341F PARENCHYMAL PATTERN: (F) - The breast(s) demonstrate(s) diffuse fatty replacement. BI-RADS CATEGORY: (1) - 1 RECOMMENDATION: (ANNUAL) - Recommend routine annual screening mammography. [id number] 1 year screening LATERALITY: (B)
== END 2020-08-07 12:37 | disposition home or self-care (01) ==
LOC: DI 12:36
DX: Z12.31 Encounter for screening mammogram for malignant neoplasm of breast (principal)

== ENCOUNTER 2020-09-11 14:04 | Outpatient (CLI) | payer MEDICARE ==
--- NOTE | 2020-09-11 16:19 | XRAY Report ---
PROCEDURE: Lumbar Spine 2 View INDICATIONS: CHRONIC LBP, SCOLIOSIS L-SPINE, ARTHRITIS TECHNIQUE: 2 views of the lumbar spine were acquired. COMPARISON: 10/24/2017 FINDINGS: Bones: 5 [id number] vertebrae are present. There is stable alignment with mild levocurvature o f the mid lumbar spine. Stable appearance of multilevel lumbar spondylitic changes with mild degenera tive endplate changes and small endplate osteophytes. Mid and lower lumbar facet arthropathy.. No ac stillaguamish vertebral body compression fractures. No suspicious bony lesions. Soft tissues: Overlying bowel gas pattern is normal. No suspicious soft tissue calcifications. Dens e atherosclerotic calcifications of the abdominal aorta. IMPRESSION: Stable appearance of multilevel lumbar spondylosis. Findings are most severe at L5-S1. Atherosclerotic vascular disease. Reviewed by: Rich Beebe MD on 09/11/2020 4:17 PM PST Approved by: Rich Beebe MD on 09/11/2020 4:17 PM PST Station ID: [id number]
--- NOTE | 2020-09-11 16:21 | XRAY Report ---
PROCEDURE: Hip w/Pelvis 2-3V RT INDICATIONS: CHRONIC LBP, SCOLIOSIS L-SPINE, ARTHRITIS TECHNIQUE: AP pelvis with lateral view(s) of the right hip(s). COMPARISON: 10/24/2017 FINDINGS: Bones: No acute fractures or dislocations. Pelvic ring appears intact. No suspicious bony lesions. Interval progression of moderate-severe right hip osteoarthrosis with increased loss of the joint s pace, more prominent marginal osteophyte formation, and increased subchondral sclerosis involving bot h sides of the joint space. Additionally, AP view of the left hip demonstrates progression of now mod erate left hip degenerative change. Lower lumbar spondylosis better evaluated on dedicated lumbar spi ne series from same day (please see separate report for details). Soft tissues: The visualized bowel gas pattern is normal. No suspicious soft tissue calcifications. IMPRESSION: Interval progression of bilateral hip osteoarthrosis which now appears moderate-severe on the right a nd moderate on the left. Lower lumbar spondylosis. Reviewed by: Rich Beebe MD on 09/11/2020 4:20 PM PST Approved by: Rich Beebe MD on 09/11/2020 4:20 PM PST Station ID: [id number]
== END 2020-09-11 14:05 | disposition home or self-care (01) ==
LOC: DI 14:04
PROVIDERS: ATTEND Family Medicine
DX: M47.816 Spondylosis without myelopathy or radiculopathy, lumbar region (principal); M16.0 Bilateral primary osteoarthritis of hip

== ENCOUNTER 2020-09-18 10:12 | Outpatient (CLI) | payer MEDICARE ==
[2020-09-18 10:50] LABS: ALBUMIN 4.4 g/dL (3.2-5.5); ALBUMIN/GLOBULIN RATIO 1.6 (1.0-2.2); BILIRUBIN,TOTAL 0.9 mg/dL (0.2-1.0); CREATININE 0.8 mg/dL (0.4-1.0); POTASSIUM 4.2 mmol/L (3.5-5.0); TOTAL PROTEIN 7.2 g/dL (6.7-8.2)
[2020-09-18 10:54] LABS: BASOPHILS % (AUTO) 0.6 %; CHOL/HDL RATIO 3.1 (<4.4); CHOLESTEROL 258 mg/dL; EOSINOPHILS # (AUTO) 0.1 10^3/uL (0.0-0.7); EOSINOPHILS % (AUTO) 2.6 %; HCT - HEMATOCRIT 38.1 % (37.0-47.0); HDL CHOLESTEROL 84 mg/dL; HGB - HEMOGLOBIN 11.7 g/dL (12.0-16.0); LDL CHOLESTEROL,CALCULATED 163 mg/dL; LDL/HDL RATIO 1.9 (<4.4); MEAN CORPUSCULAR HEMOGLOBIN 20.9 pg (27.0-31.0); MEAN CORPUSCULAR HGB CONC 30.7 g/dL (32.0-36.0); MEAN PLATELET VOLUME 10.6 fL (7.9-10.8); MONOCYTES # (AUTO) 0.4 10^3/uL (0.0-1.0); MONOCYTES % (AUTO) 7.6 %; NEUTROPHILS # (AUTO) 3.8 10^3/uL (1.5-6.6); PLT - PLATELET COUNT 404 10^3/uL (130-450); RED CELL DISTRIBUTION WIDTH 17.5 % (12.0-15.0); TRIGLYCERIDES 55 mg/dL; VLDL CHOLESTEROL 11 mg/dL; WHITE BLOOD COUNT 5.4 x10^3/uL (4.8-10.8)
[2020-09-18 10:58] LABS: SLIDE REVIEW? Indicated
[2020-09-18 11:30] LABS: PLATELET ESTIMATE, MANUAL INCREASED (>450,000) (NORMAL); PLATELET MORPHOLOGY NORMAL APPEARANCE (NORMAL)
== END 2020-09-18 10:13 | disposition home or self-care (01) ==
LOC: LAB 10:12
PROVIDERS: ATTEND Family Medicine
DX: E78.5 Hyperlipidemia, unspecified (principal); M06.9 Rheumatoid arthritis, unspecified; Z79.899 Other long term (current) drug therapy
CPT/HCPCS: 36415; 80053; 80061; 83721; 85025

== ENCOUNTER 2020-09-26 12:40 | Outpatient (CLI) | payer MEDICARE ==
--- NOTE | 2020-09-26 14:51 | XRAY Report ---
PROCEDURE: Shoulder 3 View RT INDICATIONS: PAIN IN NECK/R SHOULDER PX TECHNIQUE: 3 views of the shoulder were acquired. COMPARISON: None. FINDINGS: Bones: No fractures or dislocations. Mild to moderate acromioclavicular joint and glenohumeral joint osteoarthritic changes are seen. No suspicious bony lesions. Visualized ribs appear intact. Soft tissues: No suspicious soft tissue calcifications. IMPRESSION: Mild to moderate right shoulder joint osteoarthritis. No fracture or dislocation. Reviewed by: Jonel Malloy MD on 09/26/2020 2:50 PM PDT Approved by: Jonel Malloy MD on 09/26/2020 2:50 PM PDT Station ID: [id number]
--- NOTE | 2020-09-26 15:16 | XRAY Report ---
PROCEDURE: Cervical Spine 2 View INDICATIONS: PAIN IN NECK/R SHOULDER PX TECHNIQUE: 4 view(s) of the cervical spine were acquired. COMPARISON: None. FINDINGS: Bones: No fractures or dislocations to the C7-T1 level. Degenerative endplate changes and bilateral facet hypertrophic changes are noted throughout cervical spine. The lateral masses of C1 appear intac t on the odontoid view. No suspicious bony lesions. Soft tissues: No prevertebral soft tissue swelling. IMPRESSION: Degenerative disc disease throughout cervical spine. No cervical spine fracture or dislo cation. Reviewed by: Jonel Malloy MD on 09/26/2020 3:15 PM PDT Approved by: Jonel Malloy MD on 09/26/2020 3:15 PM PDT Station ID: [id number]
== END 2020-09-26 12:41 | disposition home or self-care (01) ==
LOC: DI 12:40
PROVIDERS: ATTEND Internal Medicine Rheumatology
DX: M47.812 Spondylosis without myelopathy or radiculopathy, cervical region (principal); M50.33 Other cervical disc degeneration, cervicothoracic region; M19.011 Primary osteoarthritis, right shoulder

== ENCOUNTER 2020-12-03 11:22 | Observation (INO) | payer MEDICARE ==
--- OUTSIDE RECORDS SUMMARY | 2020-12-03 11:26 | EXTERNAL MEDICAL SUMMARY RPT | Continuity of Care Document ---
:1950 Demographics Phone Unavailable Preferred Language Syrian Marital Status Unknown Baptist Affiliation Unknown Race Unknown Ethnic Group Unknown Author Organization [place] Address [address] [phone] Phone Care Team Providers Name Role Phone Nathe Unavailable Unavailable Demmler Unavailable Unavailable Allergies Encounters Medications date description facility 20201127 Acetaminophen 325 MG Oral Tablet [facility] 20201127 Aspirin 81 MG Enteric Coated Tablet [facility] 20201126 celecoxib 100 MG Oral Capsule [facility] 31745996 montelukast 10 MG Oral Tablet [facility] 42010632 Leucovorin 5 MG Oral Tablet [facility] 22140182 Acyclovir 400 MG Oral Tablet [facility] 73572330 Fluticasone propionate 0.25 MG/ACTUAT / salmeterol 0.05 [facility] MG/ACTUAT Dry Powder Inhaler 00834688 Methotrexate 2.5 MG Oral Tablet [facility] 63173248 cetirizine hydrochloride 10 MG Oral Tab Merged with [facility] 30299131 montelukast 10 MG Oral Tablet [facility] 52639296 Leucovorin 5 MG Oral Tablet [facility] 90389756 Acyclovir 400 MG Oral Tablet [facility] 48740061 Fluticasone propionate 0.25 MG/ACTUAT / salmeterol 0.05 [facility] MG/ACTUAT Dry Powder Inhaler 10558074 Methotrexate 2.5 MG Oral Tablet [facility] 96358767 cetirizine hydrochloride 10 MG Oral [facility] Problems date description facility 20201126 Unilateral primary osteoarthritis, righ t hip [facility] [id number] Encounter for preprocedural laboratory examination [facility] [id number] Contact with and (suspected) exposure t o [address] [id number] Hyperglycemia, unspecified [facility] [id number] Encounter for preprocedural laboratory examination [facility] [id number] Encounter for other preprocedural exami [facility] Procedures date description facility 20201126 [facility] [id number] [facility] [id number] [facility] [id number] [facility] [id number] [facility] Results Vital Signs date measurement value source 20201126 weight_standard 164.99 lb 96900062 weight_metric 74.84 kg 42436391 height_standard 69 in 20201126 height_metric 175.26 cm 20201126 BMI 24.3 kg/m2 20201127 temperature_standard 97.8 F 20201127 temperature_metric 36.56 C 20201127 respiration_rate 15 /min 20201127 heart_rate 75 /min 20201127 BP_systolic 142 mm[Hg] 20201127 BP_diastolic 85 mm[Hg]
--- OUTSIDE RECORDS SUMMARY | 2020-12-03 11:58 | EXTERNAL MEDICAL SUMMARY RPT | Continuity of Care Document ---
:1950 Demographics Phone Unavailable Preferred Language [place] Islander Marital Status Unknown Episcopalian Affiliation Unknown Race Unknown Ethnic Group Unknown Author Organization [place] Address [address] [phone] Phone Care Team Providers Name Role Phone Nathe Unavailable Unavailable Demmler Unavailable Unavailable Allergies Encounters Medications date description facility 20201127 Acetaminophen 325 MG Oral Tablet [facility] 20201127 Aspirin 81 MG Enteric Coated Tablet [facility] 20201126 celecoxib 100 MG Oral Capsule [facility] 05522546 montelukast 10 MG Oral Tablet [facility] 08588213 Leucovorin 5 MG Oral [facility] 68452562 Acyclovir 400 MG Oral Tablet [facility] 51652389 Fluticasone propionate 0.25 MG/ACTUAT / salmeterol 0.05 [facility] MG/ACTUAT Dry Powder Inhaler 46870694 Methotrexate 2.5 MG Oral Tablet [facility] 69049612 cetirizine hydrochloride 10 MG Oral Tab [facility] 88084956 montelukast 10 MG Oral Tablet [facility] 98578955 Leucovorin 5 MG Oral [facility] 44442825 Acyclovir 400 MG Oral Tablet [facility] 16708511 Fluticasone propionate 0.25 MG/ACTUAT / salmeterol 0.05 [facility] MG/ACTUAT Dry Powder Inhaler 51320862 Methotrexate 2.5 MG Oral Tablet [facility] 22477710 cetirizine hydrochloride 10 MG Oral [facility] Problems date description facility 20201126 Unilateral primary osteoarthritis, righ t hip [facility] [id number] Encounter for preprocedural laboratory examination [facility] [id number] Contact with and (suspected) exposure t o [address] [id number] Hyperglycemia, unspecified [facility] [id number] Encounter for preprocedural laboratory examination [facility] [id number] Encounter for other preprocedural exami [facility] Procedures date description facility 20201126 [facility] [id number] [facility] [id number] [facility] [id number] [facility] [id number] [facility] Results Vital Signs date measurement value source 20201126 weight_standard 164.99 lb 52322313 weight_metric 74.84 kg 28214213 height_standard 69 in 20201126 height_metric 175.26 cm 20201126 BMI 24.3 kg/m2 20201127 temperature_standard 97.8 F 20201127 temperature_metric 36.56 C 20201127 respiration_rate 15 /min 20201127 heart_rate 75 /min 20201127 BP_systolic 142 mm[Hg] 20201127 BP_diastolic 85 mm[Hg]
[2020-12-03 12:07] LABS: BASOPHILS % (AUTO) 0.4 %; EOSINOPHILS # (AUTO) 0.1 10^3/uL (0.0-0.7); HCT - HEMATOCRIT 29.4 % (37.0-47.0); HGB - HEMOGLOBIN 9.1 g/dL (12.0-16.0); LYMPHOCYTES # (AUTO) 0.6 10^3/uL (1.5-3.5); LYMPHOCYTES % (AUTO) 8.1 %; MEAN CORPUSCULAR HEMOGLOBIN 20.7 pg (27.0-31.0); MEAN PLATELET VOLUME 10.1 fL (7.9-10.8); MONOCYTES # (AUTO) 0.6 10^3/uL (0.0-1.0); MONOCYTES % (AUTO) 7.6 %; NEUTROPHILS # (AUTO) 6.4 10^3/uL (1.5-6.6); NEUTROPHILS % (AUTO) 82.5 %; PLT - PLATELET COUNT 409 10^3/uL (130-450); RED BLOOD COUNT 4.39 10^6/uL (4.20-5.40); RED CELL DISTRIBUTION WIDTH 15.9 % (12.0-15.0); WHITE BLOOD COUNT 7.8 x10^3/uL (4.8-10.8)
[2020-12-03 12:10] LABS: SLIDE REVIEW? Indicated
--- NOTE | 2020-12-03 12:15 | XRAY Report ---
PROCEDURE: Chest 1 View X-Ray INDICATIONS: Chest pain TECHNIQUE: One view of the chest was acquired. COMPARISON: None FINDINGS: Surgical changes and devices: None. Lungs and pleura: Focal opacity noted in the left cardiophrenic angle which could represent atelectas is or pneumonia. Mediastinum: Mediastinal contours appear normal. Heart size is normal. Bones and chest wall: No suspicious bony lesions. Overlying soft tissues appear unremarkable. IMPRESSION: Focal opacity in left lung base compatible with atelectasis versus pneumonia. Reviewed by: Lisa Evangelista MD, PhD on 12/03/2020 12:14 PM PDT Approved by: Lisa Evangelista MD, PhD on 12/03/2020 12:14 PM PDT Station ID: [id number]
[2020-12-03 12:17] LABS: ALBUMIN 3.8 g/dL (3.2-5.5); BILIRUBIN,TOTAL 0.6 mg/dL (0.2-1.0); CALCIUM 9.4 mg/dL (8.5-10.3); CREATININE 0.6 mg/dL (0.4-1.0); POTASSIUM 3.8 mmol/L (3.5-5.0); TOTAL PROTEIN 7.1 g/dL (6.7-8.2)
[2020-12-03 12:18] LABS: ALBUMIN/GLOBULIN RATIO 1.2 (1.0-2.2)
[2020-12-03] MEDS ORDERED: HYDROmorphone 1 MG/ML CARPUJECT IVP STA ×3 (12:42→16:49)
[2020-12-03] MEDS ORDERED: IOVERSOL 320 100 ML VIAL IVP ONE ×2 (13:02→15:04)
[2020-12-03 13:05] LABS: INR 1.2 (0.8-1.2); PT - PROTHROMBIN TIME 13.2 secs (9.9-12.6)
[2020-12-03] MEDS ORDERED: cefTRIAXone 2 GM in SODIUM CHLORIDE 0.9% MINIBAG 100 ML IV STA (13:34)
[2020-12-03] MEDS ORDERED: AZITHROMYCIN 250 MG TABLET PO STA (13:35)
--- NOTE | 2020-12-03 13:46 | ED Physician Documentation ---
PD HPI DYSPNEA - Stated complaint Stated Complaint: SOA,PX ON LT BODY - Chief complaint Chief Complaint: Cardiac - History obtained from History obtained from: Patient - Additional information Additional information: Patient comes emergency department chief complaint of shortness of breath for the last couple of days. She states she has also had pain in her chest which has been becoming increasingly noticeable over the same period of time. She states it started over her left breast but now, is a sharp pain that goes underneath her left breast and is worse with deep breaths or certain movements. Patient states she has had a little bit of a cough but not very much. No fevers that she knows of. No chills or sweats. Patient denies any nausea or vomiting. No abdominal pain. She states she is 7 days postop today after a right total hip replacement. However, she states she has been getting up and around from practically day 1 and has tried to be very good about doing her breathing exer cises and purposeful coughing to prevent pneumonia. Patient has no history of DVT. She states that she has not had any calf pain and that the swelling in her right leg is actually going down. No other complaints at this time. Patient's only other history is rheumatoid arthritis and asthma, but she states she does not think either one is acting up currently. Review of Systems Ten Systems: 10 systems reviewed and negative Constitutional: reports: Reviewed and negative Eyes: reports: Reviewed and negative Ears: reports: Reviewed and negative Nose: reports: Reviewed and negative Throat: reports: Reviewed and negative Cardiac: reports: Chest pain / pressure. denies: Pedal edema Respiratory: reports: Dyspnea. denies: Hemoptysis, Wheezing GI: reports: Reviewed and negative : reports: Reviewed and negative Skin: reports: Reviewed and negative Musculoskeletal: reports: Reviewed and negative Neurologic: reports: Reviewed and negative Psychiatric: reports: Reviewed and negative Endocrine: reports: Reviewed and negative Immunocompromised: reports: Reviewed and negative PD PAST MEDICAL HISTORY - Past Medical History Cardiovascular: None Respiratory: Asthma Endocrine/Autoimmune: None GI: None : None HEENT: Chronic vision loss Psych: None Musculoskeletal: Rheumatoid arthritis Derm: None - Past Surgical History General: Colonoscopy /[employer]: Oophrectomy HEENT:  - Present Medications Home Medications: Ambulatory Orders Medication Instructions Recorded Confirmed Albuterol Sulfate [Proair Hfa 1 - 2 puffs INH Q4H PRN 04/11/17 04/11/17 Inhaler] Adan Cit/Mag/D3/Zn/[employer] Operator/Simon/Bor 1 each PO DAILY 04/11/17 04/11/17 [Citracal-Vit D + Magnesium Tab] Cetirizine [ZyrTEC] 10 mg PO DAILY 04/11/17 04/11/17 Fluticasone [Flonase] 1 sprays ROSALBA DAILY 04/11/17 04/11/17 Fluticasone/Salmeterol [Advair 1 each IH BID 04/11/17 04/11/17 250-50 Diskus] Leucovorin Calcium 5 mg PO OAW 04/11/17 04/11/17 Montelukast [Singulair] 10 mg PO QPM 04/11/17 04/11/17 Aspirin [Aspirin EC] 81 mg PO BID 12/03/20 12/03/20 Methotrexate [Methotrexate Sodium] 15 mg PO OAW 12/03/20 - Allergies Allergies/Adverse Reactions: Allergies Allergy/AdvReac Type Severity Reaction Status Date / Time adhesive tape Allergy Rash Verified 12/03/20 11:41 Sulfa (Sulfonamide Allergy Rash Verified 12/03/20 11:41 Antibiotics) - Social History Does the pt smoke?: No Smoking Status: Never smoker PD ED PE NORMAL - Vitals Vital signs reviewed: Yes - General General: Alert and oriented X 3, No acute distress, Well developed/nourished - HEENT HEENT: Atraumatic, PERRL, EOMI, Moist mucous membranes - Neck Neck: Supple, no meningeal sign - Cardiac Cardiac: RRR, No murmur, Strong equal pulses - Respiratory Respiratory: Clear bilaterally, Other (No respiratory distress while at rest in the bed. However, patient is noted to become quite dyspneic with scooting herself up in the bed. Dyspnea lasts for approximately 30 seconds after movement.) - Abdomen Abdomen: Soft, Non tender, Non distended - Derm Derm: Normal color, Warm and dry, No rash, Other (Surgical wound site without evidence of infection.) - Extremities Extremities: No deformity, No edema (Pitting edema. Right calf slightly enlarged compared to left, but nontender.) - Neuro Neuro: Alert and oriented X 3 - Psych Psych: Normal mood, Normal affect Results - Vitals Vitals: Vital Signs - 24 hr 12/03/20 12/03/20 12/03/20 11:36 11:52 12:10 Temperature 36.4 C L Heart Rate 93 82 77 Respiratory 20 18 18 Rate Blood Pressure 155/76 H 155/76 H 150/70 H O2 Saturation 98 96 99 12/03/20 12/03/20 12/03/20 12:30 13:00 13:30 Temperature Heart Rate 78 71 63 Respiratory 18 16 17 Rate Blood Pressure 116/70 131/80 H 130/80 O2 Saturation 96 92 92 12/03/20 12/03/20 12/03/20 14:00 14:30 15:01 Temperature Heart Rate 66 70 69 Respiratory 18 16 14 Rate Blood Pressure 135/74 H 133/76 H 136/79 H O2 Saturation 94 95 96 12/03/20 12/03/20 15:30 16:00 Temperature Heart Rate 71 76 Respiratory 17 18 Rate Blood Pressure 133/81 H 154/85 H O2 Saturation 96 96 Oxygen O2 Source Nasal cannula Oxygen Flow Rate 2 - EKG (time done) 1135 Rate: Rate (enter#) (88) Rhythm: NSR [place]: Normal Intervals: Normal [place], QRS normal QRS: Normal Ischemia: Normal ST segments. No: T wave inversion Compare to prior EKG: Old EKG unavailable Computer interpretation: Agree with computer - Labs Labs: Laboratory Tests 12/03/20 12/03/20 12/03/20 11:51 11:51 11:51 WBC 7.8 RBC 4.39 Hgb 9.1 L Hct 29.4 L MCV 67.0 L MCH 20.7 L MCHC 31.0 L RDW 15.9 H Plt Count 409 MPV 10.1 Neut # (Auto) 6.4 Lymph # (Auto) 0.6 L [place] # (Auto) 0.6 Eos # (Auto) 0.1 Baso # (Auto) 0.0 Absolute Nucleated RBC 0.00 Nucleated RBC % 0.0 Manual Slide Review Indicated RBC Morph Micro Appear 1+ POLYCHROMASIA PT INR Sodium 136 Potassium 3.8 Chloride 101 Carbon Dioxide 23 Anion Gap 12.0 BUN 17 Creatinine 0.6 Estimated GFR (MDRD) 99 Glucose 111 H Calcium 9.4 Total Bilirubin 0.6 AST 24 ALT 27 Alkaline Phosphatase 80 Troponin I High Sens 2.7 B-Natriuretic Peptide Total Protein 7.1 Albumin 3.8 Globulin 3.3 Albumin/Globulin Ratio 1.2 Lipase 27 12/03/20 12/03/20 12:55 12:55 WBC RBC Hgb Hct MCV MCH MCHC RDW Plt Count MPV Neut # (Auto) Lymph # (Auto) [place] # (Auto) Eos # (Auto) Baso # (Auto) Absolute Nucleated RBC Nucleated RBC % Manual Slide Review RBC Morph Micro Appear PT 13.2 H INR 1.2 Sodium Potassium Chloride Carbon Dioxide Anion Gap BUN Creatinine Estimated GFR (MDRD) Glucose Calcium Total Bilirubin AST ALT Alkaline Phosphatase Troponin I High Sens B-Natriuretic Peptide 70 Total Protein Albumin Globulin Albumin/Globulin Ratio Lipase - Rads (name of study) CXR Radiology: Final report received, EMP read indepedently, See rad report (infiltrate LLL) CTA chest Radiology: Final report received, EMP read indepedently, See rad report (Bilateral SS PEs. Small L pleural effusion) US BLE Radiology: Final report received, EMP read indepedently, See rad report (neg) PD MEDICAL DECISION MAKING - ED course Complexity details: reviewed results, re-evaluated patient, considered differential, d/w patient ED course: The patient was worked up with labs, EKG, chest x-ray, and ultimately, CTA of the thorax. PT was found to have possible infiltrate on CXR and was treated with abx in the ED for this. CTA showed bilateral small PE's. No DVT with bilateral LE US. Pt had become progressively more dyspneic in the ED, and RA O2 saturations were persistently dropping to upper 80's-90% with good wave form. HR and BP were normal. The pt had visible dyspnea, even with small movements in bed. Her PESI score was 100 and I felt that she should be at least observed in the hospital. I spoke with Dr. Zepeda, who agreed to admit the pt to his service. Pt had been started on supplemental O2 by this point, and was feeling better with this. Departure - Departure Disposition: ED Place in Observation Clinical Impression: Hypoxia Pulmonary embolism Qualifiers: Pulmonary embolism type: other Chronicity: acute Acute cor pulmonale presence: without acute cor pulmonale Qualified Code(s): I26.99 - Other pulmonary embolism without acute cor pulmonale Condition: Serious Discharge Date/Time: 12/03/20 17:15
[2020-12-03] MEDS ORDERED: KETOROLAC 30 MG/ML VIAL IVP STA (14:20)
--- NOTE | 2020-12-03 14:27 | CT Report ---
PROCEDURE: ANGIO CHEST W/WO INDICATIONS: SOB/CP after surgery CONTRAST: IV CONTRAST: Optiray 320 ml: 80 PO CONTRAST: *NO PO CONTRAST TECHNIQUE: After the administration of intravenous contrast, 2 mm thick sections acquired from the pulmonary api quinten to the posterior costophrenic angles. 3-dimensional maximum intensity projection (MIP) coronal a nd sagittal reformats were then acquired through the thorax. For radiation dose reduction, the follow ing was used: automated exposure control, adjustment of mA and/or kV according to patient size. COMPARISON: None FINDINGS: Image quality: Degraded by motion artifact. Pulmonary arteries: Pulmonary arteries are normal in size, small filling defects noted in several bi lateral lower lobe subsegmental pulmonary arteries. Lungs and pleura: Trace left-sided pleural fluid collection. Atelectasis noted in the dependent porti ons of the lungs. Central and peripheral airways are patent. Mediastinum: Heart size is normal, without pericardial effusion. The heart are V/LV ratio is normal. Atherosclerotic calcifications noted in the aorta, great vessels and coronary vasculature. No media stinal or hilar adenopathy. Thoracic aorta is normal in caliber and enhancement. Esophagus is ghada l in caliber. Small hiatal hernia is noted. Bones and chest wall: No suspicious bony lesions. Ribs and thoracic spine appear intact throughout. No axillary or supraclavicular adenopathy. The thyroid is normal in size and there are no incident al findings. Abdomen: Visualized upper abdominal solid organs appear normal in the early arterial phase of enhanc ement. IMPRESSION: 1. Image quality limited by motion artifact. 2. Small filling defects in several bilateral lower lobe subsegmental pulmonary arteries concerning f or small pulmonary emboli. 3. Trace left-sided pleural effusion. 4. Atherosclerosis including dense atherosclerotic calcifications in the left coronary vasculature. Reviewed by: Lisa Evangelista MD, PhD on 12/03/2020 2:25 PM PDT Approved by: Lisa Evangelista MD, PhD on 12/03/2020 2:25 PM PDT Station ID: [id number]
[2020-12-03] MEDS ORDERED: APIXABAN 5 MG TABLET PO STA (14:28)
--- NOTE | 2020-12-03 16:03 | Ultrasound Report ---
PROCEDURE: Duplex Ext Veins Bilateral INDICATIONS: SHANICE MARIA TECHNIQUE: Real-time imaging, as well as color and pulse Doppler interrogation, were performed of the deep veins of both legs from the inguinal ligament to the popliteal fossa. COMPARISON: None. FINDINGS: The deep veins are normally compressible, and free of intraluminal thrombus. Color and pu lse Doppler demonstrate normal phasic intravascular flow. There is normal augmentation response to d istal compression maneuver. IMPRESSION: No evidence of DVT in visualized bilateral lower extremity veins. Reviewed by: Jonel Malloy MD on 12/03/2020 4:02 PM PDT Approved by: Jonel Malloy MD on 12/03/2020 4:02 PM PDT Station ID: [id number]
[2020-12-03] MEDS ORDERED: HYDROmorphone 0.5 MG/0.5 ML SYRINGE IVP PRN (16:22)
[2020-12-03] MEDS ORDERED: ACETAMINOPHEN 325 MG TABLET PO PRN (16:22)
[2020-12-03] MEDS ORDERED: SODIUM CHLORIDE FLUSH 0.9% 10 ML SYRINGE IVP PRN (16:22)
--- NOTE | 2020-12-03 16:39 | HISTORY & PHYSICAL EXAMINATION ---
Chief Complaint - Chief Complaint Chief Complaint: dyspnea, chest pain History of Present Illness - Admitted From Admitted From:: [facility] ED - History Obtained From Records Reviewed: yes History obtained from: patient - History of Present Illness HPI Comment/Other: Patient is a 70-year-old female with medical history significant for asthma and rheumatoid arthritis who presented to the ED with complaint of dyspnea, left shoulder pain with radiation down to her waist and pain towards her left breast. Her symptoms started last evening and seemed to progress throughout the day. It also seemed to be more pronounced with activity. At its worse the pain was 10 out of 10 scale. She did describe the quality as an ache but sometimes sharp and pulsating. She also experienced muscle spasms. She reports being nauseous but did not vomit. Attempts to take deep breaths also seem to worsen the pain. She denied abdominal pain, fever or chills. She underwent right total hip replacement 1 week ago at [facility]. Work-up in the ED included a CT angio of the chest which showed subsegmental PEs bilaterally. The patient was presented for admission for significant pleuritic pain which required IV pain medication. Also while in the ED her oxygen with occasionally dropped into the 80s. 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 Social History Notes: She does not use tobacco products or recreational substances. She occasionally drinks alcohol - POLST Patient has POLST: Yes POLST Status: Full Code Meds/Allgy - Home Medications Home Medications: Ambulatory Orders Medication Instructions Recorded Confirmed Albuterol Sulfate [Proair Hfa 1 - 2 puffs INH Q4H PRN 04/11/17 04/11/17 Inhaler] Adan Cit/Mag/D3/Zn/Stone Mason/Simon/Bor 1 each PO DAILY 04/11/17 04/11/17 [Citracal-Vit D + Magnesium Tab] Cetirizine [ZyrTEC] 10 mg PO DAILY 04/11/17 04/11/17 Etanercept [Enbrel] 50 mg SQ OAW 04/11/17 04/11/17 Fluticasone [Flonase] 1 sprays ROSALBA DAILY 04/11/17 04/11/17 Fluticasone/Salmeterol [Advair 1 each IH DAILY 04/11/17 04/11/17 250-50 Diskus] Leucovorin Calcium 5 mg PO TID 04/11/17 04/11/17 Montelukast [Singulair] 10 mg PO QPM 04/11/17 04/11/17 metHOTREXate sodium [Trexall] 150 mg PO OAW 04/11/17 04/11/17 - Allergies Allergies/Adverse Reactions: Allergies Allergy/AdvReac Type Severity Reaction Status Date / Time adhesive tape Allergy Rash Verified 12/03/20 11:41 Sulfa (Sulfonamide Allergy Rash Verified 12/03/20 11:41 Antibiotics) Review of Systems - Constitutional Constitutional: denies: Fatigue, Fever, Chills, Weakness - Eyes Eyes: denies: Pain, Vision loss - Ears, Nose & Throat Ears, Nose & Throat: denies: Ear pain, Sore throat - Cardiovascular Cariovascular: denies: Palpitations, Chest pain, Edema, Lightheadedness, Syncope - Respiratory Respiratory: reports: SOB at rest, SOB with exertion, Pleuritic pain. denies: Sputum production, Wheezing - Gastrointestinal Gastrointestinal: reports: Nausea. denies: Abdominal pain, Abdominal distention, Vomiting, Coffee grounds emesis, Reflux/heartburn - Genitourinary Genitourinary: denies: Dysuria, Frequency, Urgency, Hematuria - Musculoskeletal Musculoskeletal: denies: Muscle pain, Back pain, Muscle aches, Stiffness - Integumentary Integumentary: denies: Rash, Pruritis, Lesions - Neurological Neurological: denies: General weakness, Focal weakness, Headache, Dizziness - Psychiatric Psychiatric: denies: Depression, Anxiety - Endocrine Endocrine: denies: Polyuria, Polydypsia - Hematologic/Lymphatic Hematologic/Lymphatic: reports: Anemia. denies: Bruising, Petechiae Prior Level of Functionality: Patient is independent of activities of daily living Exam - Vital Signs Vital Signs: Vital Signs x48h Temp Pulse Resp BP Pulse Ox 12/03/20 16:00 76 18 154/85 H 96 12/03/20 15:30 71 17 133/81 H 96 12/03/20 15:01 69 14 136/79 H 96 12/03/20 14:30 70 16 133/76 H 95 12/03/20 14:00 66 18 135/74 H 94 12/03/20 13:30 63 17 130/80 92 12/03/20 13:00 71 16 131/80 H 92 12/03/20 12:30 78 18 116/70 96 12/03/20 12:10 77 18 150/70 H 99 12/03/20 11:52 82 18 155/76 H 96 12/03/20 11:36 36.4 C L 93 20 155/76 H 98 - Physical Exam General Appearance: positive: Alert, Moderate distress, Severe distress Eyes Bilateral: positive: PERRL, EOMI ENT: positive: No signs of dehydration, Dry mucous membranes Neck: positive: No JVD, Trachea midline Respiratory: positive: Breath sounds nml. negative: Wheezes, Rales, Rhonchi Cardiovascular: positive: Regular rate & rhythm, No murmur Abdomen: positive: Non-tender, No organomegaly, Nml bowel sounds, No distention. negative: Guarding, Rebound Back: positive: Nml inspection Skin: positive: Color nml, No rash, Warm, Dry Extremities: positive: Non-tender, Full ROM, Nml appearance, No pedal edema Neurologic/Psychiatric: positive: Oriented x3, Mood/affect nml Conclusion/Plan - Problem List (1) Pulmonary embolism Conclusion/Plan: Likely a provoked cause. Patient underwent a right total hip replacement 1 week ago. Lower extremity Doppler was negative for thrombus bilaterally. Patient was started on Eliquis 10mg mg p.o. twice daily for 7 days then will switch to 5mg po bid for a total of 12 weeks. Should a pulmonary embolus recur, extensive work-up would need to be done for possible hypercoagulable state. Qualifiers: Pulmonary embolism type: other Chronicity: acute Acute cor pulmonale presence: without acute cor pulmonale Qualified Code(s): I26.99 - Other pulmonary embolism without acute cor pulmonale (2) Pleuritic pain Conclusion/Plan: Severe Requiring IV pain med Dilaudid, [place], Tylenol ordered as needed. (3) Asthma Conclusion/Plan: Not in exacerbation. DuoNeb ordered as needed. Patient is currently on supplemental oxygen via nasal cannula. (4) Rheumatoid arthritis Conclusion/Plan: Patient will resume home medication upon discharge. (5) Hypoxia Conclusion/Plan: Possibly multifactorial. Secondary to PE and all pleuritic pain limiting deep inspiration. Patient is currently on supplemental oxygen via nasal cannula. - Lab Results Fish Bones: 12/03/20 11:51 12/03/20 11:51 Core Measures - Anticipated LOS I expect patient to be DC'd or transferred within 96 hours.: Yes - DVT/VTE - Prophylaxis VTE/DVT Device ordered at admit?: Yes VTE/DVT Prophylaxis med ordered at admit?: Yes
--- OUTSIDE RECORDS SUMMARY | 2020-12-03 16:44 | EXTERNAL MEDICAL SUMMARY RPT | Continuity of Care Document ---
:1950 Demographics Phone Unavailable Preferred Language Lao Marital Status Unknown Episcopal Affiliation Unknown Race Unknown Ethnic Group Unknown Author Organization [place] Address [address] [phone] Phone Care Team Providers Name Role Phone Demmler Unavailable Unavailable Nathe Unavailable Unavailable Allergies Encounters Medications date description facility 20201127 Acetaminophen 325 MG Oral Tablet [facility] 20201127 Aspirin 81 MG Enteric Coated Tablet [facility] 20201126 celecoxib 100 MG Oral Capsule [facility] [id number] montelukast 10 MG Oral Tablet [facility] [id number] Leucovorin 5 MG Oral Tablet [facility] 81689513 Acyclovir 400 MG Oral Tablet [facility] 40211252 Fluticasone propionate 0.25 MG/ACTUAT / salmeterol 0.05 [facility] MG/ACTUAT Dry Powder Inhaler 41144540 Methotrexate 2.5 MG Oral Tablet [facility] 72657711 cetirizine hydrochloride 10 MG Oral Tab [facility] [id number] montelukast 10 MG Oral Tablet [facility] 87956469 Leucovorin 5 MG Oral Tablet [facility] 68523901 Acyclovir 400 MG Oral Tablet [facility] 07632055 Fluticasone propionate 0.25 MG/ACTUAT / salmeterol 0.05 [facility] MG/ACTUAT Dry Powder Inhaler 20628145 Methotrexate 2.5 MG Oral Tablet [facility] 73131684 cetirizine hydrochloride 10 MG Oral [facility] Problems date description facility 20201126 Unilateral primary osteoarthritis, righ t hip [facility] [id number] Encounter for preprocedural laboratory examination [facility] [id number] Contact with and (suspected) exposure t o [address] [phone] Hyperglycemia, unspecified [facility] [id number] Encounter for preprocedural laboratory examination [facility] [id number] Encounter for other preprocedural exami [facility] Procedures date description facility [id number] [facility] [id number] [facility] [id number] [facility] [id number] [facility] [id number] [facility] Results Vital Signs date measurement value source 20201126 weight_standard 164.99 lb 21992151 weight_metric 74.84 kg [id number] height_standard 69 in 20201126 height_metric 175.26 cm 20201126 BMI 24.3 kg/m2 20201127 temperature_standard 97.8 F 20201127 temperature_metric 36.56 C 20201127 respiration_rate 15 /min 20201127 heart_rate 75 /min 20201127 BP_systolic 142 mm[Hg] 20201127 BP_diastolic 85 mm[Hg]
[2020-12-03] MEDS ORDERED: IPRATROPIUM/ALBUTEROL 3 ML NEB INH PRN (17:02)
[2020-12-03] MEDS: ONDANSETRON 4 MG/2 ML VIAL IVP PRN (17:23)
[2020-12-03] MEDS: SODIUM CHLORIDE FLUSH 0.9% 10 ML SYRINGE IVP SCH ×2 (17:24→23:43)
[2020-12-03 17:39] LABS: B. PARAPERTUSSIS- RESP PCR PAN NOT DETECTED; B. PERTUSSIS- RESP PCR PANEL NOT DETECTED; C. PNEUMONIAE- RESP PCR PANEL NOT DETECTED; CORONAVIRUS 229E-RESP PCR NOT DETECTED; CORONAVIRUS HKU1-RESP PCR NOT DETECTED; CORONAVIRUS NL63-RESP PCR NOT DETECTED; CORONAVIRUS OC43-RESP PCR NOT DETECTED; HUMAN METAPNEUMOVIRUS NOT DETECTED; INFLUENZA A- RESP PCR PANEL NOT DETECTED; INFLUENZA B - RESP PCR PANEL NOT DETECTED; M. PNEUMONIAE- RESP PCR PANEL NOT DETECTED; PARAINFLUENZA VIRUS 1 NOT DETECTED; PARAINFLUENZA VIRUS 2 NOT DETECTED; PARAINFLUENZA VIRUS 3 NOT DETECTED; PARAINFLUENZA VIRUS 4 NOT DETECTED; RHINOVIRUS/ENTEROVIRUS NOT DETECTED; RSV- RESP PCR PANEL NOT DETECTED; SARS-CoV-2 -RESP PCR PANEL NOT DETECTED
[2020-12-03] MEDS: HYDROcod/ACETAM 5/325 MG TABLET PO PRN ×2 (18:44→23:42)
[2020-12-03] MEDS ORDERED: APIXABAN 5 MG TABLET PO SCH (21:00)
[2020-12-03] MEDS: MONTELUKAST 10 MG TABLET PO SCH (21:03)
[2020-12-03] MEDS: APIXABAN 5 MG TABLET PO SCH (21:03)
[2020-12-03] MEDS: BUDESONIDE 0.5 MG/2 ML NEB INH SCH (22:58)
[2020-12-04] MEDS: HYDROcod/ACETAM 5/325 MG TABLET PO PRN ×3 (04:31→12:50)
[2020-12-04 05:31] LABS: BASOPHILS % (AUTO) 0.2 %; EOSINOPHILS # (AUTO) 0.1 10^3/uL (0.0-0.7); EOSINOPHILS % (AUTO) 1.6 %; HCT - HEMATOCRIT 26.5 % (37.0-47.0); HGB - HEMOGLOBIN 8.3 g/dL (12.0-16.0); LYMPHOCYTES # (AUTO) 0.6 10^3/uL (1.5-3.5); LYMPHOCYTES % (AUTO) 10.2 %; MEAN CORPUSCULAR HEMOGLOBIN 21.2 pg (27.0-31.0); MEAN CORPUSCULAR HGB CONC 31.3 g/dL (32.0-36.0); MEAN CORPUSCULAR VOLUME 67.6 fL (81.0-99.0); MEAN PLATELET VOLUME 10.4 fL (7.9-10.8); MONOCYTES # (AUTO) 0.5 10^3/uL (0.0-1.0); MONOCYTES % (AUTO) 8.5 %; NEUTROPHILS # (AUTO) 4.9 10^3/uL (1.5-6.6); PLT - PLATELET COUNT 359 10^3/uL (130-450); RED BLOOD COUNT 3.92 10^6/uL (4.20-5.40); RED CELL DISTRIBUTION WIDTH 16.1 % (12.0-15.0); WHITE BLOOD COUNT 6.2 x10^3/uL (4.8-10.8)
[2020-12-04 05:32] LABS: SLIDE REVIEW? Indicated
[2020-12-04 05:35] LABS: CALCIUM 8.8 mg/dL (8.5-10.3); CREATININE 0.6 mg/dL (0.4-1.0); POTASSIUM 3.6 mmol/L (3.5-5.0)
[2020-12-04 05:53] LABS: PLATELET ESTIMATE, MANUAL NORMAL (130-450,000) (NORMAL); PLATELET MORPHOLOGY NORMAL APPEARANCE (NORMAL); WBC MORPHOLOGY (MULTIPLE) NORMAL APPEARANCE (NORMAL)
[2020-12-04] MEDS: SODIUM CHLORIDE FLUSH 0.9% 10 ML SYRINGE IVP SCH ×3 (08:58→23:56)
[2020-12-04] MEDS: APIXABAN 5 MG TABLET PO SCH ×2 (08:58→21:04)
[2020-12-04] MEDS ORDERED: FLUTICASONE NASAL SPRAY NAS SCH (09:00)
--- NOTE | 2020-12-04 09:19 | XRAY Report ---
PROCEDURE: Chest 1 View X-Ray INDICATIONS: bilateral crackles TECHNIQUE: One view of the chest was acquired. COMPARISON: Chest plain film and chest CT 12/03/2020. FINDINGS: Surgical changes and devices: None. Lungs and pleura: No pleural effusions or pneumothorax. Lungs are abnormal, with a interstitial pro minence likely reflecting long-standing smoking history. There also is asymmetric increased radiodens ity involving the left lower lobe. Mediastinum: Mediastinal contours appear normal. Heart size is normal. Bones and chest wall: No suspicious bony lesions. Overlying soft tissues appear unremarkable. IMPRESSION: Asymmetric increased radiodensity involving the left lower lobe, consistent with mild or early pneumo gilbert, versus reduced inspiration and atelectasis with retention of pulmonary secretions. It is noted o n review of the CT scanning that there is a concern for presence of mild lung base atelectasis and th erefore mild ischemic injury to the left lower lobe lung parenchyma also should be considered as caus e of this asymmetry. No change, however, from the study one day ago. Reviewed by: Chris Em MD on 12/04/2020 8:18 AM KAREN Approved by: Chris Em MD on 12/04/2020 8:18 AM KAREN Station ID: [id number]
--- NOTE | 2020-12-04 10:52 | PROVIDER PROGRESS NOTE ---
Assessment/Plan - Problem List (1) Pulmonary embolism Qualifiers: Pulmonary embolism type: other Chronicity: acute Acute cor pulmonale presence: without acute cor pulmonale Qualified Code(s): I26.99 - Other pulmonary embolism without acute cor pulmonale Assessment/Plan: Eliquis 10 mg p.o. twice daily. This was started yesterday evening 12/03/20. Plan is for 7 days at this dose then switch to 5 mg p.o. twice daily x11 weeks. (2) Pleuritic pain Assessment/Plan: Continue pain management with Dilaudid, [place] and oral Tylenol. Crackles were heard on auscultation bilaterally today. Chest x-ray raise concern for atelectasis and small fluid likely related to injury from embolus. Patient encouraged to use incentive spirometer as often as possible. Continue supplemental oxygen. (3) Asthma Assessment/Plan: Not in exacerbation. Continue supplemental oxygen. We will order patient's home [place] (4) Rheumatoid arthritis Assessment/Plan: Patient will resume home medication upon discharge. (5) Hypoxia Assessment/Plan: Possibly multifactorial. Secondary to PE and all pleuritic pain limiting deep inspiration. Patient is currently on supplemental oxygen via nasal cannula. - Current Meds Current Meds: Current Medications Generic Name Dose Route Start Last Admin Trade Name Freq PRN Reason Stop Dose Admin Acetaminophen 650 mg 12/03/20 16:22 12/03/20 21:03 Acetaminophen 325 Mg Tablet PO 650 mg Q4HR PRN Administration Pain 1 to 4 Hydrocodone Bitart/Acetaminophen 1 tab 12/03/20 16:22 12/04/20 07:43 Hydrocod/Acetam 5/325 Mg Tablet PO 1 tab Q4HR PRN Administration Pain 5 to 7 Apixaban 10 mg 12/03/20 21:00 12/04/20 08:58 Apixaban 5 Mg Tablet PO 10 mg BID LALA Administration Budesonide 0.5 mg 12/03/20 20:26 12/03/20 22:58 Budesonide 0.5 Mg/2 Ml Neb INH Not Given RTBID LALA Montelukast Sodium 10 mg 12/03/20 21:00 12/03/20 21:03 Montelukast 10 Mg Tablet PO 10 mg QPM LALA Administration Ondansetron HCl 4 mg 12/03/20 16:22 12/03/20 17:23 Ondansetron 4 Mg/2 Ml Vial IVP 4 mg Q6HR PRN Administration Nausea / Vomiting Sodium Chloride 10 ml 12/03/20 17:00 12/04/20 08:58 Sodium Chloride Flush 0.9% 10 Ml Syringe IVP 10 ml 0100,0900,1700 LALA Administration - Lab Result Fish Bone Diagrams: 12/04/20 04:50 12/04/20 04:50 - Additional Planning My Orders: My Active Orders 12/03/20 Dinner Regular Diet [DIET] 12/03/20 16:22 Activity Orders [RC] Q2HR IO [RC] IOSHIFT Initiate Bowel Care Protocol [RC] .protocol Initiate Line Care Protocol [RC] QSHIFT Initiate Personal Care Protoco [RC] .protocol Telemetry- [RC] Q4HR Vital Signs [RC] Q4HR Acetaminophen [Tylenol] 650 mg PO Q4HR PRN HYDROcod/ACETAM 5/325 [[place] 5/325] 1 tab PO Q4HR PRN HYDROmorphone 0.5MG SYRINGE [Dilaudid 0.5MG Syringe] 0.5 mg IVP Q2H PRN Ondansetron Inj [Zofran Inj] 4 mg IVP Q6HR PRN Sodium Chloride Flush 0.9% [Normal Saline Flush 0.9%] 10 ml IVP PRN PRN Code Status [OTHERS] Routine Condition of Patient [OTHERS] Routine DVT Prophylaxis [OTHERS] Routine 12/03/20 16:24 SCDs [RC] QSHIFT 12/03/20 17:00 Sodium Chloride Flush 0.9% [Normal Saline Flush 0.9%] 10 ml IVP 0100,0900,1700 12/03/20 17:02 Ipratropium/Albuterol [Duoneb] 3 ml INH Q4HR PRN 12/03/20 18:12 Nebulizer/MDI Tx. [RC] .q4 PRN 12/03/20 18:13 Oxygen Therapy [RC] .PRN 12/03/20 21:00 Apixaban [Eliquis] 10 mg PO BID 12/04/20 08:37 Incentive [Incentive Spirometry - RT] [RC] QID 12/05/20 05:00 BMP - BASIC METABOLIC PANEL [CHEM] DAILYLAB CBC - COMP BLD CT W/AUTO DIFF [HEME] DAILYLAB 12/06/20 05:00 BMP - BASIC METABOLIC PANEL [CHEM] DAILYLAB CBC - COMP BLD CT W/AUTO DIFF [HEME] DAILYLAB 12/07/20 05:00 BMP - BASIC METABOLIC PANEL [CHEM] DAILYLAB CBC - COMP BLD CT W/AUTO DIFF [HEME] DAILYLAB 12/08/20 05:00 BMP - BASIC METABOLIC PANEL [CHEM] DAILYLAB CBC - COMP BLD CT W/AUTO DIFF [HEME] DAILYLAB Subjective - Subjective Patient Reports: Other (Patient's pleuritic pain persist and occasionally wakes her up from sleep. Crackles were appreciable on lung bases bilaterally today. She denied chest pain, abdominal pain, nausea or vomiting.) Objective Vital Signs: Vital Signs - 24 hr 12/03/20 12/03/20 12/03/20 11:36 11:52 12:10 Temperature 36.4 C L Heart Rate 93 82 77 Heart Rate [ Brachial] Respiratory 20 18 18 Rate Blood Pressure 155/76 H 155/76 H 150/70 H Blood Pressure [Left Brachial artery] O2 Saturation 98 96 99 12/03/20 12/03/20 12/03/20 12:30 13:00 13:30 Temperature Heart Rate 78 71 63 Heart Rate [ Brachial] Respiratory 18 16 17 Rate Blood Pressure 116/70 131/80 H 130/80 Blood Pressure [Left Brachial artery] O2 Saturation 96 92 92 12/03/20 12/03/20 12/03/20 14:00 14:30 15:01 Temperature Heart Rate 66 70 69 Heart Rate [ Brachial] Respiratory 18 16 14 Rate Blood Pressure 135/74 H 133/76 H 136/79 H Blood Pressure [Left Brachial artery] O2 Saturation 94 95 96 12/03/20 12/03/20 12/03/20 15:30 16:00 16:30 Temperature Heart Rate 71 76 65 Heart Rate [ Brachial] Respiratory 17 18 16 Rate Blood Pressure 133/81 H 154/85 H 131/80 H Blood Pressure [Left Brachial artery] O2 Saturation 96 96 98 12/03/20 12/03/20 12/03/20 17:00 17:20 18:00 Temperature 36.3 C L 36.4 C L Heart Rate 78 68 Heart Rate [ 71 Brachial] Respiratory 18 16 16 Rate Blood Pressure 138/90 H Blood Pressure 119/58 L [Left Brachial artery] O2 Saturation 99 99 12/03/20 12/03/20 12/04/20 20:15 23:40 04:30 Temperature 36.3 C L 36.7 C 36.7 C Heart Rate Heart Rate [ 61 64 71 Brachial] Respiratory 16 16 16 Rate Blood Pressure Blood Pressure 133/65 H 130/74 140/65 H [Left Brachial artery] O2 Saturation 97 96 98 12/04/20 12/04/20 04:48 09:00 Temperature 36.7 C 36.6 C Heart Rate 71 Heart Rate [ 64 Brachial] Respiratory 16 17 Rate Blood Pressure Blood Pressure 119/70 [Left Brachial artery] O2 Saturation 98 100 Oxygen O2 Source Nasal cannula Oxygen Flow Rate 2 I&O (Last 24 Hrs): Intake and Output Totals x24h 12/02/20 12/03/20 12/04/20 23:59 23:59 23:59 Intake Total 640 640 Output Total 400 600 Balance 240 40 General: Alert, Oriented x3, Moderate distress, Severe distress HEENT: PERRLA, EOMI Neck: Supple, No JVD Neuro: Alert, Non Focal, Oriented Times 3 Cardiovascular: Regular rate Respiratory: Rales (bilateral lung bases), Other (pleuritic chest pain persists especially in the left) Abdomen: Normal bowel sounds, Soft, No tenderness Extremities: No clubbing, No cyanosis, No edema Skin: No rashes, No breakdown - Results Results: Laboratory Results WBC 6.2 x10^3/uL (4.8-10.8) 12/04/20 04:50 RBC 3.92 10^6/uL (4.20-5.40) L 12/04/20 04:50 Hgb 8.3 g/dL (12.0-16.0) L 12/04/20 04:50 Hct 26.5 % (37.0-47.0) L 12/04/20 04:50 MCV 67.6 fL (81.0-99.0) L 12/04/20 04:50 MCH 21.2 pg (27.0-31.0) L 12/04/20 04:50 MCHC 31.3 g/dL (32.0-36.0) L 12/04/20 04:50 RDW 16.1 % (12.0-15.0) H 12/04/20 04:50 Plt Count 359 10^3/uL (130-450) 12/04/20 04:50 MPV 10.4 fL (7.9-10.8) 12/04/20 04:50 Neut # (Auto) 4.9 10^3/uL (1.5-6.6) 12/04/20 04:50 Lymph # (Auto) 0.6 10^3/uL (1.5-3.5) L 12/04/20 04:50 [place] # (Auto) 0.5 10^3/uL (0.0-1.0) 12/04/20 04:50 Eos # (Auto) 0.1 10^3/uL (0.0-0.7) 12/04/20 04:50 Baso # (Auto) 0.0 10^3/uL (0.0-0.1) 12/04/20 04:50 Absolute Nucleated RBC 0.00 x10^3/uL 12/04/20 04:50 Nucleated RBC % 0.0 /100WBC 12/04/20 04:50 Manual Slide Review Indicated 12/04/20 04:50 WBC Morphology NORMAL APPEARANCE (NORMAL) 12/04/20 04:50 Platelet Estimate NORMAL (130-450,000) (NORMAL) 12/04/20 04:50 Platelet Morphology NORMAL APPEARANCE (NORMAL) 12/04/20 04:50 RBC Morph Micro Appear 2+ MICROCYTOSIS (NORMAL) 1+ HYPOCHROMASIA (NORMAL) 1+ POLYCHROMASIA (NORMAL) 1+ OVALOCYTES (NORMAL) 1+ ANISOCYTOSIS (NORMAL) 12/04/20 04:50 RBC Morph Micro Appear 2+ MICROCYTOSIS (NORMAL) 1+ HYPOCHROMASIA (NORMAL) 1+ POLYCHROMASIA (NORMAL) 1+ OVALOCYTES (NORMAL) 1+ ANISOCYTOSIS (NORMAL) 12/04/20 04:50 RBC Morph Micro Appear 2+ MICROCYTOSIS (NORMAL) 1+ HYPOCHROMASIA (NORMAL) 1+ POLYCHROMASIA (NORMAL) 1+ OVALOCYTES (NORMAL) 1+ ANISOCYTOSIS (NORMAL) 12/04/20 04:50 RBC Morph Micro Appear 2+ MICROCYTOSIS (NORMAL) 1+ HYPOCHROMASIA (NORMAL) 1+ POLYCHROMASIA (NORMAL) 1+ OVALOCYTES (NORMAL) 1+ ANISOCYTOSIS (NORMAL) 12/04/20 04:50 RBC Morph Micro Appear 2+ MICROCYTOSIS (NORMAL) 1+ HYPOCHROMASIA (NORMAL) 1+ POLYCHROMASIA (NORMAL) 1+ OVALOCYTES (NORMAL) 1+ ANISOCYTOSIS (NORMAL) 12/04/20 04:50 PT 13.2 secs (9.9-12.6) H 12/03/20 12:55 INR 1.2 (0.8-1.2) 12/03/20 12:55 Sodium 133 mmol/L (135-145) L 12/04/20 04:50 Potassium 3.6 mmol/L (3.5-5.0) 12/04/20 04:50 Chloride 100 mmol/L (101-111) L 12/04/20 04:50 Carbon Dioxide 25 mmol/L (21-32) 12/04/20 04:50 Anion Gap 8.0 (6-13) 12/04/20 04:50 BUN 18 mg/dL (6-20) 12/04/20 04:50 Creatinine 0.6 mg/dL (0.4-1.0) 12/04/20 04:50 Estimated GFR (MDRD) 99 (>89) 12/04/20 04:50 Glucose 110 mg/dL (70-100) H 12/04/20 04:50 Calcium 8.8 mg/dL (8.5-10.3) 12/04/20 04:50 Total Bilirubin 0.6 mg/dL (0.2-1.0) 12/03/20 11:51 AST 24 IU/L (10-42) 12/03/20 11:51 ALT 27 IU/L (10-60) 12/03/20 11:51 Alkaline Phosphatase 80 IU/L (42-121) 12/03/20 11:51 Troponin I High Sens 2.7 ng/L (2.3-14.8) 12/03/20 11:51 B-Natriuretic Peptide 70 pg/mL (5-100) 12/03/20 12:55 Total Protein 7.1 g/dL (6.7-8.2) 12/03/20 11:51 Albumin 3.8 g/dL (3.2-5.5) 12/03/20 11:51 Globulin 3.3 g/dL (2.1-4.2) 12/03/20 11:51 Albumin/Globulin Ratio 1.2 (1.0-2.2) 12/03/20 11:51 Lipase 27 U/L (22-51) 12/03/20 11:51 Nasal Adenovirus (PCR) NOT DETECTED 12/03/20 16:37 Nasal B. parapertussis DNA (PCR) NOT DETECTED 12/03/20 16:37 Nasal Coronavir 229E PCR NOT DETECTED 12/03/20 16:37 Nasal Coronavir HKU1 PCR NOT DETECTED 12/03/20 16:37 Nasal Coronavir NL63 PCR NOT DETECTED 12/03/20 16:37 Nasal Coronavir OC43 PCR NOT DETECTED 12/03/20 16:37 Nasal Enterovir/Rhinovir PCR NOT DETECTED 12/03/20 16:37 Nasal Influenza B PCR NOT DETECTED 12/03/20 16:37 Nasal Influenza A PCR NOT DETECTED 12/03/20 16:37 Nasal Parainfluen 1 PCR NOT DETECTED 12/03/20 16:37 Nasal Parainfluen 2 PCR NOT DETECTED 12/03/20 16:37 Nasal Parainfluen 3 PCR NOT DETECTED 12/03/20 16:37 Nasal Parainfluen 4 PCR NOT DETECTED 12/03/20 16:37 Nasal RSV (PCR) NOT DETECTED 12/03/20 16:37 Nasal B.pertussis DNA PCR NOT DETECTED 12/03/20 16:37 Nasal C.pneumoniae (PCR) NOT DETECTED 12/03/20 16:37 [place] Human Metapneumo PCR NOT DETECTED 12/03/20 16:37 Nasal M.pneumoniae (PCR) NOT DETECTED 12/03/20 16:37 Nasal SARS-CoV-2 (PCR) NOT DETECTED 12/03/20 16:37 - Procedures Procedures: Procedures INSPECTION OF LOWER INTESTINAL TRACT, ENDO (04/11/17) ABX Reporting Has patient been on IV antibiotics over the past 48 hours?: No
--- NOTE | 2020-12-04 11:01 | PHARMACY PROGRESS NOTE ---
- Best Possible Medication History Admit Date and Time: 12/03/20 0492 Processed by: Pharmacy Medication History completed: Yes Patient Interview: Completed Secondary Source(s): Physician records, Pharmacy records, Insurance records Patient reports her Millicent is on hold for her recent procedure. She has not taken the medication since about a week before the procedure and is going to resume in a week if cleared by her physician. As the person ultimately responsible for medication therapy, providers are able to order a medication from an existing home medication list in [facility] via the "Reconcile Routine" prior to Confirmation of that medication by landing support specialist. Such practice is discouraged except when the physician, in their clinical judgment, deems that a medical need exists for a medication without regard to previous use.
[2020-12-04] MEDS: SALMETEROL INH SCH ×2 (12:03→21:01)
[2020-12-04] MEDS: [UNRECOGNIZED DRUG - OTHER] INH SCH ×2 (12:03→21:01)
[2020-12-04] MEDS: FLUTICASONE PROPION INH SCH ×2 (12:03→21:01)
[2020-12-04] MEDS: BUDESONIDE 0.5 MG/2 ML NEB INH SCH (13:05)
[2020-12-04] MEDS ORDERED: ACETAMINOPHEN 325 MG TABLET PO PRN (15:59)
[2020-12-04] MEDS: HYDROcod/ACETAM 7.5 MG/325 MG TABLET PO PRN ×2 (16:17→21:04)
[2020-12-04] MEDS: MAG HYDROX/AL HYDROX/SIMETH 30 ML UDC PO PRN ×2 (17:58→21:40)
[2020-12-04] MEDS: ONDANSETRON 4 MG/2 ML VIAL IVP PRN (20:53)
[2020-12-04] MEDS ORDERED: LATANOPROST 0.005% OPHTH DROPS EACHEYE SCH (21:00)
[2020-12-04] MEDS: MONTELUKAST 10 MG TABLET PO SCH (21:04)
[2020-12-05] MEDS: HYDROcod/ACETAM 7.5 MG/325 MG TABLET PO PRN ×2 (04:46→09:01)
[2020-12-05 05:20] LABS: BASOPHILS % (AUTO) 0.3 %; EOSINOPHILS # (AUTO) 0.1 10^3/uL (0.0-0.7); EOSINOPHILS % (AUTO) 1.4 %; HCT - HEMATOCRIT 26.4 % (37.0-47.0); HGB - HEMOGLOBIN 8.2 g/dL (12.0-16.0); LYMPHOCYTES # (AUTO) 0.9 10^3/uL (1.5-3.5); LYMPHOCYTES % (AUTO) 13.1 %; MEAN CORPUSCULAR HEMOGLOBIN 20.8 pg (27.0-31.0); MEAN CORPUSCULAR HGB CONC 31.1 g/dL (32.0-36.0); MEAN CORPUSCULAR VOLUME 66.8 fL (81.0-99.0); MEAN PLATELET VOLUME 10.3 fL (7.9-10.8); MONOCYTES # (AUTO) 0.7 10^3/uL (0.0-1.0); MONOCYTES % (AUTO) 9.3 %; NEUTROPHILS # (AUTO) 5.3 10^3/uL (1.5-6.6); NEUTROPHILS % (AUTO) 75.3 %; PLT - PLATELET COUNT 380 10^3/uL (130-450); RED BLOOD COUNT 3.95 10^6/uL (4.20-5.40); RED CELL DISTRIBUTION WIDTH 15.7 % (12.0-15.0)
[2020-12-05 05:24] LABS: SLIDE REVIEW? Indicated
[2020-12-05 05:26] LABS: CALCIUM 9.1 mg/dL (8.5-10.3); CREATININE 0.5 mg/dL (0.4-1.0); POTASSIUM 4.4 mmol/L (3.5-5.0)
[2020-12-05 05:53] LABS: PLATELET ESTIMATE, MANUAL NORMAL (130-450,000) (NORMAL); PLATELET MORPHOLOGY NORMAL APPEARANCE (NORMAL); WBC MORPHOLOGY (MULTIPLE) NORMAL APPEARANCE (NORMAL)
--- NOTE | 2020-12-05 07:16 | Discharge Plan ---
Discharge Plan Problem Reviewed?: Yes Disposition: Home, Self Care Condition: Stable Prescriptions: HYDROcodone/ACET 7.5/325 [Sedan 7.5/325] 1 tab PO Q4HR PRN #30 tablet PRN Reason: Pain Rivaroxaban [Xarelto] 15 mg PO BID 5 Days #10 tablet Rivaroxaban [Xarelto] 20 mg PO DAILY #30 tablet Azithromycin [Zithromax Tri-Monroe] 500 mg PO DAILY #3 tablet Diet: Regular Activity Restrictions: Activity as Tolerated Shower Restrictions: No Driving Restrictions: No Health Concerns: You were admitted on 12/03/20 after he presented with complaint of difficulty breathing and chest pain. Work-up included a CT of your chest which showed that you had a pulmonary embolism which is blood clots to your lungs. You were admitted for management of the pleuritic pain you are experiencing. This was achieved using IV Dilaudid and oral Sedan. You were also started on a blood thinner called Eliquis. You took this for a total of 2 days however because of insurance coverage upon discharge the blood thinner was changed to Xarelto. You are to take Xarelto 15 mg p.o. twice a day for 5 days. This would start today 1 in the evening. After the 5 days he will take Xarelto 20 mg p.o. daily for total of 11 weeks. You will be sent home with 30 days worth of Xarelto. Is expected that your primary care physician will continue managing/renewing your prescription for the duration of your treatment. You were advised to have your primary care physician check a basic metabolic panel at least monthly. If you are renal function which is your kidney numbers worsen then there might need to be a discussion about discontinuing Xarelto. You will also be sent home with Sedan for pain management as needed. I will also prescribe you a Z-Monroe. This is not needed at moment however should you develop a fever or have a productive yellowish/greenish cough you can take the Z-monroe as prescribed Has been advised to take Maalox for stomach upset. You have been advised to take Metamucil and MiraLAX to help with bowel movements. Patients can be constipated when using opiate pain medications like Sedan. You have been encouraged to stay active upon discharge. You may follow-up with your primary care physician within 7 to 10 days or as needed. The above was explained to you with your at bedside. You expressed understanding and are agreeable with the plan. Consequently you are being discharged in stable condition. Plan of Treatment: You were admitted on 12/03/20 after he presented with complaint of difficulty breathing and chest pain. Work-up included a CT of your chest which showed that you had a pulmonary embolism which is blood clots to your lungs. You were admitted for management of the pleuritic pain you are experiencing. This was achieved using IV Dilaudid and oral Sedan. You were also started on a blood thinner called Eliquis. You took this for a total of 2 days however because of insurance coverage upon discharge the blood thinner was changed to Xarelto. You are to take Xarelto 15 mg p.o. twice a day for 5 days. This would start today 1 in the evening. After the 5 days he will take Xarelto 20 mg p.o. daily for total of 11 weeks. You will be sent home with 30 days worth of Xarelto. Is expected that your primary care physician will continue managing/renewing your prescription for the duration of your treatment. You were advised to have your primary care physician check a basic metabolic panel at least monthly. If you are renal function which is your kidney numbers worsen then there might need to be a discussion about discontinuing Xarelto. You will also be sent home with Sedan for pain management as needed. I will also prescribe you a Z-Monroe. This is not needed at moment however should you develop a fever or have a productive yellowish/greenish cough you can take the Z-monroe as prescribed Has been advised to take Maalox for stomach upset. You have been advised to take Metamucil and MiraLAX to help with bowel movements. Patients can be constipated when using opiate pain medications like Sedan. You have been encouraged to stay active upon discharge. You may follow-up with your primary care physician within 7 to 10 days or as needed. The above was explained to you with your at bedside. You expressed understanding and are agreeable with the plan. Consequently you are being discharged in stable condition. Care Goals: You were admitted on 12/03/20 after he presented with complaint of difficulty breathing and chest pain. Work-up included a CT of your chest which showed that you had a pulmonary embolism which is blood clots to your lungs. You were admitted for management of the pleuritic pain you are experiencing. This was achieved using IV Dilaudid and oral Sedan. You were also started on a blood thinner called Eliquis. You took this for a total of 2 days however because of insurance coverage upon discharge the blood thinner was changed to Xarelto. You are to take Xarelto 15 mg p.o. twice a day for 5 days. This would start today 1 in the evening. After the 5 days he will take Xarelto 20 mg p.o. daily for total of 11 weeks. You will be sent home with 30 days worth of Xarelto. Is expected that your primary care physician will continue managing/renewing your prescription for the duration of your treatment. You were advised to have your primary care physician check a basic metabolic panel at least monthly. If you are renal function which is your kidney numbers worsen then there might need to be a discussion about discontinuing Xarelto. You will also be sent home with Sedan for pain management as needed. I will also prescribe you a Z-Monroe. This is not needed at moment however should you develop a fever or have a productive yellowish/greenish cough you can take the Z-monroe as prescribed Has been advised to take Maalox for stomach upset. You have been advised to take Metamucil and MiraLAX to help with bowel movements. Patients can be constipated when using opiate pain medications like Sedan. You have been encouraged to stay active upon discharge. You may follow-up with your primary care physician within 7 to 10 days or as needed. The above was explained to you with your at bedside. You expressed understanding and are agreeable with the plan. Consequently you are being discharged in stable condition. Assessment: You were admitted on 12/03/20 after he presented with complaint of difficulty breathing and chest pain. Work-up included a CT of your chest which showed that you had a pulmonary embolism which is blood clots to your lungs. You were admitted for management of the pleuritic pain you are experiencing. This was achieved using IV Dilaudid and oral Sedan. You were also started on a blood thinner called Eliquis. You took this for a total of 2 days however because of insurance coverage upon discharge the blood thinner was changed to Xarelto. You are to take Xarelto 15 mg p.o. twice a day for 5 days. This would start today 1 in the evening. After the 5 days he will take Xarelto 20 mg p.o. daily for total of 11 weeks. You will be sent home with 30 days worth of Xarelto. Is expected that your primary care physician will continue managing/renewing your prescription for the duration of your treatment. You were advised to have your primary care physician check a basic metabolic panel at least monthly. If you are renal function which is your kidney numbers worsen then there might need to be a discussion about discontinuing Xarelto. You will also be sent home with Sedan for pain management as needed. I will also prescribe you a Z-Monroe. This is not needed at moment however should you develop a fever or have a productive yellowish/greenish cough you can take the Z-monroe as prescribed Has been advised to take Maalox for stomach upset. You have been advised to take Metamucil and MiraLAX to help with bowel movements. Patients can be constipated when using opiate pain medications like Sedan. You have been encouraged to stay active upon discharge. You may follow-up with your primary care physician within 7 to 10 days or as needed. The above was explained to you with your at bedside. You expressed understanding and are agreeable with the plan. Consequently you are being discharged in stable condition. No Smoking: If you smoke, Please STOP! Call for help. Follow-up with: George Bacon MD [Primary Care Provider] -
--- NOTE | 2020-12-05 07:16 | DISCHARGE SUMMARY ---
Discharge Summary Admit Date: 12/03/20 Discharge Date: 12/05/20 Discharging Provider: Almita Zepeda Primary Care Provider: George Bacon Code Status: Attempt Resuscitation Condition at Discharge: Stable Discharge Disposition: 01 Home, Self Care - DIAGNOSES Admission Diagnoses: Pulmonary embolism Pleuritic pain Asthma Rheumatoid arthritis Hypoxia Discharge Diagnoses with Status of Each Condition: Pulmonary embolism: Acute. On Xarelto for 12 week total Pleuritic pain: Related to pulmonary embolism. [place] for pain management Asthma: Chronic. Stable. Continue home medication Rheumatoid arthritis: Chronic. Stable. Resume home medication per perl programmer's recommendation Hypoxia: Resolved - HPI History of Present Illness: Patient is a 70-year-old female with medical history significant for asthma and rheumatoid arthritis who presented to the ED with complaint of dyspnea, left shoulder pain with radiation down to her waist and pain towards her left breast. Her symptoms started last evening and seemed to progress throughout the day. It also seemed to be more pronounced with activity. At its worse the pain was 10 out of 10 scale. She did describe the quality as an ache but sometimes sharp and pulsating. She also experienced muscle spasms. She reports being nauseous but did not vomit. Attempts to take deep breaths also seem to worsen the pain. She denied abdominal pain, fever or chills. She underwent right total hip replacement 1 week ago at [facility]. Work-up in the ED included a CT angio of the chest which showed subsegmental PEs bilaterally. The patient was presented for admission for significant pleuritic pain which required IV pain medication. Also while in the ED her oxygen with occasionally dropped into the 80s. - HOSPITAL COURSE Hospital Course: Patient's pain was managed over the course of her hospital stay with Dilaudid, [place] and Tylenol as needed. He pain subsided significantly over the course of her hospital stay. She required supplemental oxygen for mild hypoxia. This was weaned off after 24 hours and the patient's oxygen saturation sustained in the mid 90s on room air even with activity. She was also prescribed an incentive spirometer and encouraged to use it as often as possible. Lower extremity Dopplers did not show any DVT. The patient was initially started on Eliquis 10 mg p.o. twice daily for 2 days. However upon discharge this was changed to Xarelto Parents p.o. twice daily for 5 days then she will switch to Xarelto 20 mg p.o. daily for 11 weeks. It is expected that her primary care physician will continue management of Xarelto. She was advised to have a monthly check of her basic metabolic panel to monitor her renal function. If she has worsening renal function she may need to come off Xarelto. She may follow-up with her primary care physician in 7 to 10 days. - ALLERGIES Allergies/Adverse Reactions: Allergies Allergy/AdvReac Type Severity Reaction Status Date / Time adhesive tape Allergy Rash Verified 12/03/20 11:41 Sulfa (Sulfonamide Allergy Rash Verified 12/03/20 11:41 Antibiotics) - MEDICATIONS Home Medications: Ambulatory Orders Medication Instructions Recorded Confirmed Albuterol Sulfate [Proair Hfa 1 - 2 puffs INH Q4H PRN 04/11/17 12/04/20 Inhaler] Cetirizine [ZyrTEC] 10 mg PO DAILY 04/11/17 12/04/20 Fluticasone [Flonase] 1 sprays ROSALBA DAILY 04/11/17 12/04/20 Leucovorin Calcium 5 mg PO OAW 04/11/17 12/04/20 Montelukast [Singulair] 10 mg PO QPM 04/11/17 12/04/20 Aspirin [Aspirin EC] 81 mg PO BID 12/03/20 12/04/20 Methotrexate [Methotrexate Sodium] 15 mg PO OAW 12/03/20 12/04/20 Acetaminophen [Tylenol] 650 mg PO TID PRN 12/04/20 12/04/20 Acyclovir 400 mg PO DAILY PRN 12/04/20 12/04/20 Fluticasone Propion/Salmeterol 1 puffs INH BID 12/04/20 12/04/20 [Wixela 250-50 Inhub] Latanoprost/Pf [Latanoprost 0.005% 1 drops EACHEYE QPM 12/04/20 12/04/20 Eye Drop] Tofacitinib Citrate [Xeljanz Xr] 11 mg PO DAILY 12/04/20 12/04/20 Azithromycin [Zithromax Tri-[place]] 500 mg PO DAILY #3 tablet 12/05/20 HYDROcodone/ACET 7.5/325 [[place] 1 tab PO Q4HR PRN #30 tablet 12/05/20 7.5/325] Rivaroxaban [Xarelto] 15 mg PO BID 5 Days #10 tablet 12/05/20 Rivaroxaban [Xarelto] 20 mg PO DAILY #30 tablet 12/05/20 - PHYSICAL EXAM AT DISCHARGE General Appearance: positive: Alert, Mild distress, Moderate distress Eyes Bilateral: positive: PERRL, EOMI ENT: positive: No signs of dehydration Neck: positive: No JVD, Trachea midline Respiratory: positive: Chest non-tender, No respiratory distress, Other (Mild crackles on lung bases) Cardiovascular: positive: Regular rate & rhythm Abdomen: positive: Non-tender, Nml bowel sounds, No distention. negative: Guarding, Rebound Back: positive: CVA tenderness (L) (left. Mild to moderate) Skin: positive: Color nml, No rash, Warm, Dry Extremities: positive: Non-tender, Full ROM, Nml appearance, No pedal edema Neurologic/Psychiatric: positive: Oriented x3, Mood/affect nml - LABS Result Diagrams: 12/05/20 04:40 12/05/20 04:40 - TIME SPENT Time Spent in Discharge (Minutes): 25
[2020-12-05] MEDS ORDERED: FLUTICASONE NASAL SPRAY NAS SCH (09:00)
[2020-12-05] MEDS: APIXABAN 5 MG TABLET PO SCH (09:01)
[2020-12-05] MEDS: MAG HYDROX/AL HYDROX/SIMETH 30 ML UDC PO PRN (09:01)
[2020-12-05] MEDS: [UNRECOGNIZED DRUG - OTHER] INH SCH (09:03)
[2020-12-05] MEDS: SODIUM CHLORIDE FLUSH 0.9% 10 ML SYRINGE IVP SCH (09:03)
[2020-12-05] MEDS: SALMETEROL INH SCH (09:03)
[2020-12-05] MEDS: FLUTICASONE PROPION INH SCH (09:03)
[2020-12-05 12:26] VITALS: BP 122/70
[2020-12-10] MEDS ORDERED: APIXABAN 5 MG TABLET PO SCH (21:00)
== END 2020-12-05 12:40 | disposition home or self-care (01) ==
LOC: ED 11:22 → MS2 16:22
PROVIDERS: ADMIT Internal Medicine; ATTEND Internal Medicine
DX: I26.99 Other pulmonary embolism without acute cor pulmonale (principal); J45.909 Unspecified asthma, uncomplicated; Z20.822 Contact with and (suspected) exposure to COVID-19; M06.9 Rheumatoid arthritis, unspecified; R09.02 Hypoxemia; Z96.641 Presence of right artificial hip joint; H54.7 Unspecified visual loss; Z79.899 Other long term (current) drug therapy
CPT/HCPCS: 36415; 71045; 71275; 80048; 80053; 83690; 83880; 84484; 85025; 85610; 87631; 93005; 93970; 96365; 96375; 96376; 99285; A9270; G0378; J1170; Q9967; 0202U

== ENCOUNTER 2020-12-29 22:26 | Emergency (ER) | payer MEDICARE ==
[2020-12-29] MEDS ORDERED: OXYMETAZOLINE HCL 100 SPRAYS BOTTLE NAS STA (23:17)
[2020-12-29] MEDS ORDERED: LIDOCAINE VISCOUS 2% 15 ML UDC MM STA (23:20)
--- NOTE | 2020-12-29 23:20 | ED Physician Documentation ---
PD HPI HEENT - Stated complaint Stated Complaint: NOSE BLEED - Chief complaint Chief Complaint: Heent - History obtained from History obtained from: Patient - History of Present Illness Timing - onset: Enter time (21:20), Today Timing - details: Abrupt onset Pain level max: 0 Pain level now: 0 Location: Nose Improves: Nothing Worsens: Other (no exacerbating factors) Similar symptoms before: No diagnosis Recently seen: Not recently seen - Additional information Additional information: presents with right nare epistaxis that began at 9:20 PM tonight immediately after taking a shower. no injury/trauma. Denies h/o epistaxis requiring medical attention. She recently was diagnosed with PE and is on xarelto. 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 denies: Congestion, Sinus pressure / pain Cardiac: reports: Reviewed and negative Respiratory: reports: Reviewed and negative GI: denies: Vomiting, Hematemesis PD PAST MEDICAL HISTORY - Past Medical History Past Medical History: Yes Cardiovascular: None Respiratory: Asthma Endocrine/Autoimmune: None GI: None : None HEENT: Chronic vision loss Psych: None Musculoskeletal: Rheumatoid arthritis Derm: None - Past Surgical History Past Surgical History: Yes General: Colonoscopy Ortho: Hip replacement /SCR[employer] MEAT: Oophrectomy HEENT:  - Present Medications Home Medications: Ambulatory Orders Medication Instructions Recorded Confirmed Albuterol Sulfate [Proair Hfa 1 - 2 puffs INH Q4H PRN 04/11/17 12/30/20 Inhaler] Cetirizine [ZyrTEC] 10 mg PO DAILY 04/11/17 12/30/20 Fluticasone [Flonase] 1 sprays ROSALBA DAILY 04/11/17 12/30/20 Leucovorin Calcium 5 mg PO OAW 04/11/17 12/30/20 Montelukast [Singulair] 10 mg PO QPM 04/11/17 12/30/20 Methotrexate [Methotrexate Sodium] 15 mg PO OAW 12/03/20 12/04/20 Acetaminophen [Tylenol] 650 mg PO TID PRN 12/04/20 12/30/20 Acyclovir 400 mg PO DAILY PRN 12/04/20 12/30/20 Fluticasone Propion/Salmeterol 1 puffs INH BID 12/04/20 12/30/20 [Wixela 250-50 Inhub] Latanoprost/Pf [Latanoprost 0.005% 1 drops EACHEYE QPM 12/04/20 12/30/20 Eye Drop] Tofacitinib Citrate [Xeljanz Xr] 11 mg PO DAILY 12/04/20 12/30/20 Rivaroxaban [Xarelto] 20 mg PO DAILY #30 tablet 12/05/20 12/30/20 - Allergies Allergies/Adverse Reactions: Allergies Allergy/AdvReac Type Severity Reaction Status Date / Time adhesive tape Allergy Rash Verified 12/29/20 22:44 Sulfa (Sulfonamide Allergy Rash Verified 12/29/20 22:44 Antibiotics) - Social History Does the pt smoke?: No Smoking Status: Never smoker Does the pt drink ETOH?: No Does the pt have substance abuse?: No - Immunizations Immunizations are current?: Yes - POLST Patient has POLST: Yes POLST Status: Full Code PD ED PE NORMAL - Vitals Vital signs reviewed: Yes - General General: Alert and oriented X 3, No acute distress, Well developed/nourished - Neck Neck: Supple, no meningeal sign - Derm Derm: Normal color PD ED PE EXPANDED - HEENT HEENT: Right nares epsitaxis Results - Vitals Vitals: Vital Signs - 24 hr 12/29/20 12/30/20 12/30/20 22:30 00:05 00:50 Temperature 36.3 C L 36.0 C L 36.2 C L Heart Rate 90 70 84 Respiratory 16 16 16 Rate Blood Pressure 165/77 H 162/82 H 167/88 H O2 Saturation 97 99 100 12/30/20 12/30/20 12/30/20 01:50 02:50 04:20 Temperature 36.7 C 36.8 C Heart Rate 88 89 83 Respiratory 16 14 16 Rate Blood Pressure 163/92 H 158/77 H 148/94 H O2 Saturation 99 98 97 Oxygen O2 Source Room air - Labs Labs: Laboratory Tests 12/30/20 12/30/20 04:08 04:08 WBC 6.3 RBC 4.37 Hgb 9.0 L Hct 30.0 L MCV 68.6 L MCH 20.6 L MCHC 30.0 L RDW 16.6 H Plt Count 440 MPV 10.4 Neut # (Auto) 5.1 Lymph # (Auto) 0.7 L [place] # (Auto) 0.3 Eos # (Auto) 0.0 Baso # (Auto) 0.0 Absolute Nucleated RBC 0.00 Nucleated RBC % 0.0 Manual Slide Review Indicated WBC Morphology NORMAL APPEARANCE Platelet Estimate NORMAL (130-450,000) Platelet Morphology NORMAL APPEARANCE RBC Morph Micro Appear 1+ HYPOCHROMASIA Sodium 138 Potassium 4.0 Chloride 107 Carbon Dioxide 23 Anion Gap 8.0 BUN 26 H Creatinine 0.6 Estimated GFR (MDRD) 99 Glucose 131 H Calcium 8.8 Procedures - Epistaxis Site: Right, Cannot determine Preparation: Clots removed, Afrin, Lidocaine, Clamp / pressure applied Treatment: Anterior rhinorocket, Ant post rhinorocket Other: O2 sat WNL PD MEDICAL DECISION MAKING - ED course Complexity details: re-evaluated patient, considered differential, d/w patient ED course: no epistaxis from left nare during ED stay. she had brisk right nare bleeding on initial exam as well as multiple reexaminations that precluded visualization of the nare. I repeatedly attempted suction but the bleeding was too brisk to clear with this modality. cotton ball with afrin and viscous lidocaine place and then removed after 10 minutes (bleeding rapidly soaked through this) and 4.5 cm rapid rhino placed which seemed to initially slow the bleeding but subsequently the device became saturated and bleeding noted around the device that did not slow with further observation. she then began to report sensation of bleeding down back of throat and spat out blood and clots. I removed the rapid rhino, and I then sprayed txa into right nare and then placed a cotton ball with txa applied into right nare; this also was immediately soaked through and removed after 1-2 minutes. I then placed 5.5 cm rapid rhino into right nare. this rapidly became saturated and she again reported increased sensation of bleeding down back of throat. Be was contacted and FLOOR CARE TECHNICIAN heard from Dr. Felipe who approved transfer to appropriate hospital at my discretion for treatment. I discussed this case with ENT commission specialist for [facility] (Dr. Cullen), agrees patient would be appropriate for transfer to [facility] ED where ENT commission specialist can be consulted. I then d/w Dr. Larkin, ED on duty at [facility] who accepts transfer to [facility] ED. Departure - Departure Disposition: 02 Transfer Acute Care Hosp Clinical Impression: Epistaxis Condition: Stable Discharge Date/Time: 12/30/20 04:35
[2020-12-29] MEDS ORDERED: TRANEXAMIC ACID 1,000 MG/10 ML VIAL NAS STA (23:59)
[2020-12-30] MEDS ORDERED: ONDANSETRON 4 MG/2 ML VIAL IVP STA (03:09)
[2020-12-30 04:20] LABS: BASOPHILS % (AUTO) 0.5 %; EOSINOPHILS % (AUTO) 0.6 %; LYMPHOCYTES # (AUTO) 0.7 10^3/uL (1.5-3.5); LYMPHOCYTES % (AUTO) 11.5 %; MEAN CORPUSCULAR HEMOGLOBIN 20.6 pg (27.0-31.0); MEAN CORPUSCULAR VOLUME 68.6 fL (81.0-99.0); MEAN PLATELET VOLUME 10.4 fL (7.9-10.8); MONOCYTES # (AUTO) 0.3 10^3/uL (0.0-1.0); MONOCYTES % (AUTO) 4.9 %; NEUTROPHILS # (AUTO) 5.1 10^3/uL (1.5-6.6); NEUTROPHILS % (AUTO) 81.9 %; PLT - PLATELET COUNT 440 10^3/uL (130-450); RED BLOOD COUNT 4.37 10^6/uL (4.20-5.40); RED CELL DISTRIBUTION WIDTH 16.6 % (12.0-15.0); WHITE BLOOD COUNT 6.3 x10^3/uL (4.8-10.8)
[2020-12-30 04:21] VITALS: BP 148/94
[2020-12-30 04:29] LABS: CALCIUM 8.8 mg/dL (8.5-10.3); CREATININE 0.6 mg/dL (0.4-1.0)
[2020-12-30 04:42] LABS: SLIDE REVIEW? Indicated
[2020-12-30 04:45] LABS: PLATELET ESTIMATE, MANUAL NORMAL (130-450,000) (NORMAL); PLATELET MORPHOLOGY NORMAL APPEARANCE (NORMAL); WBC MORPHOLOGY (MULTIPLE) NORMAL APPEARANCE (NORMAL)
== END 2020-12-30 04:35 | disposition short-term general hospital (02) ==
LOC: ED 22:26
DX: R04.0 Epistaxis (principal); I26.99 Other pulmonary embolism without acute cor pulmonale; Z79.01 Long term (current) use of anticoagulants
CPT/HCPCS: 30901; 30905; 36415; 80048; 85025; 96374; 99283; 99285; A9270

== ENCOUNTER 2020-12-30 04:39 | Outpatient (CLI) | payer MEDICARE | END 2020-12-30 04:40 | disposition short-term general hospital (02) | LOC: EMS 04:39 | PROVIDERS: ATTEND Emergency Medicine | DX: R04.0 Epistaxis (principal); Z79.01 Long term (current) use of anticoagulants | CPT/HCPCS: A0425; A0428 ==

== ENCOUNTER 2021-03-06 08:56 | Outpatient (CLI) | payer MEDICARE ==
[2021-03-06 09:24] LABS: BASOPHILS % (AUTO) 0.6 %; EOSINOPHILS # (AUTO) 0.3 10^3/uL (0.0-0.7); HCT - HEMATOCRIT 37.8 % (37.0-47.0); HGB - HEMOGLOBIN 11.3 g/dL (12.0-16.0); LYMPHOCYTES # (AUTO) 1.6 10^3/uL (1.5-3.5); LYMPHOCYTES % (AUTO) 25.7 %; MEAN CORPUSCULAR HGB CONC 29.9 g/dL (32.0-36.0); MEAN CORPUSCULAR VOLUME 66.9 fL (81.0-99.0); MONOCYTES # (AUTO) 0.5 10^3/uL (0.0-1.0); MONOCYTES % (AUTO) 7.6 %; NEUTROPHILS # (AUTO) 3.9 10^3/uL (1.5-6.6); NEUTROPHILS % (AUTO) 61.8 %; PLT - PLATELET COUNT 374 10^3/uL (130-450); RED BLOOD COUNT 5.65 10^6/uL (4.20-5.40); RED CELL DISTRIBUTION WIDTH 17.7 % (12.0-15.0); WHITE BLOOD COUNT 6.3 x10^3/uL (4.8-10.8)
[2021-03-06 09:36] LABS: ALBUMIN 4.1 g/dL (3.2-5.5); ALBUMIN/GLOBULIN RATIO 1.3 (1.0-2.2); BILIRUBIN,TOTAL 0.7 mg/dL (0.2-1.0); CALCIUM 9.5 mg/dL (8.5-10.3); CREATININE 0.7 mg/dL (0.4-1.0); POTASSIUM 4.4 mmol/L (3.5-5.0); TOTAL PROTEIN 7.2 g/dL (6.7-8.2)
== END 2021-03-06 08:57 | disposition home or self-care (01) ==
LOC: LAB 08:56
PROVIDERS: ATTEND Internal Medicine Rheumatology
DX: Z79.899 Other long term (current) drug therapy (principal); M06.9 Rheumatoid arthritis, unspecified
CPT/HCPCS: 36415; 80053; 85025

== ENCOUNTER 2021-06-10 10:33 | Outpatient (CLI) | payer MEDICARE ==
[2021-06-10 11:18] LABS: BASOPHILS % (AUTO) 0.3 %; EOSINOPHILS # (AUTO) 0.2 10^3/uL (0.0-0.7); EOSINOPHILS % (AUTO) 3.1 %; HCT - HEMATOCRIT 35.5 % (37.0-47.0); LYMPHOCYTES # (AUTO) 1.5 10^3/uL (1.5-3.5); LYMPHOCYTES % (AUTO) 25.4 %; MEAN CORPUSCULAR HEMOGLOBIN 20.5 pg (27.0-31.0); MEAN CORPUSCULAR VOLUME 66.1 fL (81.0-99.0); MEAN PLATELET VOLUME 10.3 fL (7.9-10.8); MONOCYTES # (AUTO) 0.4 10^3/uL (0.0-1.0); MONOCYTES % (AUTO) 6.1 %; NEUTROPHILS # (AUTO) 3.7 10^3/uL (1.5-6.6); NEUTROPHILS % (AUTO) 64.8 %; PLT - PLATELET COUNT 380 10^3/uL (130-450); RED BLOOD COUNT 5.37 10^6/uL (4.20-5.40); RED CELL DISTRIBUTION WIDTH 18.8 % (12.0-15.0); WHITE BLOOD COUNT 5.8 x10^3/uL (4.8-10.8)
[2021-06-10 11:25] LABS: SLIDE REVIEW? Indicated
[2021-06-10 11:33] LABS: ALBUMIN 4.1 g/dL (3.2-5.5); ALBUMIN/GLOBULIN RATIO 1.5 (1.0-2.2); BILIRUBIN,TOTAL 0.8 mg/dL (0.2-1.0); CALCIUM 9.2 mg/dL (8.5-10.3); CREATININE 0.7 mg/dL (0.4-1.0); POTASSIUM 4.1 mmol/L (3.5-5.0); TOTAL PROTEIN 6.8 g/dL (6.7-8.2)
[2021-06-10 12:23] LABS: PLATELET ESTIMATE, MANUAL NORMAL (130-450,000) (NORMAL); PLATELET MORPHOLOGY NORMAL APPEARANCE (NORMAL)
== END 2021-06-10 10:34 | disposition home or self-care (01) ==
LOC: LAB 10:33
PROVIDERS: ATTEND Internal Medicine Rheumatology
DX: M06.9 Rheumatoid arthritis, unspecified (principal); Z79.899 Other long term (current) drug therapy
CPT/HCPCS: 36415; 80053; 85025

== ENCOUNTER 2021-09-18 11:02 | Outpatient (CLI) | payer MEDICARE ==
[2021-09-18 11:38] LABS: BASOPHILS % (AUTO) 0.3 %; EOSINOPHILS # (AUTO) 0.2 10^3/uL (0.0-0.7); EOSINOPHILS % (AUTO) 2.8 %; HCT - HEMATOCRIT 36.5 % (37.0-47.0); HGB - HEMOGLOBIN 11.4 g/dL (12.0-16.0); LYMPHOCYTES # (AUTO) 1.2 10^3/uL (1.5-3.5); LYMPHOCYTES % (AUTO) 18.9 %; MEAN CORPUSCULAR HEMOGLOBIN 21.2 pg (27.0-31.0); MEAN CORPUSCULAR HGB CONC 31.2 g/dL (32.0-36.0); MEAN CORPUSCULAR VOLUME 67.8 fL (81.0-99.0); MEAN PLATELET VOLUME 10.5 fL (7.9-10.8); MONOCYTES # (AUTO) 0.6 10^3/uL (0.0-1.0); MONOCYTES % (AUTO) 10.3 %; NEUTROPHILS # (AUTO) 4.1 10^3/uL (1.5-6.6); NEUTROPHILS % (AUTO) 67.4 %; PLT - PLATELET COUNT 370 10^3/uL (130-450); RED BLOOD COUNT 5.38 10^6/uL (4.20-5.40); RED CELL DISTRIBUTION WIDTH 17.6 % (12.0-15.0); WHITE BLOOD COUNT 6.1 x10^3/uL (4.8-10.8)
[2021-09-18 11:44] LABS: ALBUMIN 4.5 g/dL (3.2-5.5); ALBUMIN/GLOBULIN RATIO 1.8 (1.0-2.2); BILIRUBIN,TOTAL 0.8 mg/dL (0.2-1.0); CALCIUM 9.4 mg/dL (8.5-10.3); CREATININE 0.7 mg/dL (0.4-1.0); POTASSIUM 4.1 mmol/L (3.5-5.0)
[2021-09-18 11:45] LABS: SLIDE REVIEW? Indicated
[2021-09-18 12:47] LABS: PLATELET ESTIMATE, MANUAL NORMAL (130-450,000) (NORMAL); PLATELET MORPHOLOGY NORMAL APPEARANCE (NORMAL); RBC MORPHOLOGY (MULTIPLE) 1+ ANISOCYTOSIS (NORMAL); WBC MORPHOLOGY (MULTIPLE) NORMAL APPEARANCE (NORMAL)
== END 2021-09-18 11:03 | disposition home or self-care (01) ==
LOC: LAB 11:02
PROVIDERS: ATTEND Internal Medicine Rheumatology
DX: M06.9 Rheumatoid arthritis, unspecified (principal); Z79.899 Other long term (current) drug therapy
CPT/HCPCS: 36415; 80053; 85025

== ENCOUNTER 2021-12-11 09:40 | Outpatient (CLI) | payer MEDICARE ==
[2021-12-11 09:51] LABS: BASOPHILS % (AUTO) 0.6 %; EOSINOPHILS # (AUTO) 0.2 10^3/uL (0.0-0.7); EOSINOPHILS % (AUTO) 2.4 %; HCT - HEMATOCRIT 37.5 % (37.0-47.0); HGB - HEMOGLOBIN 11.6 g/dL (12.0-16.0); LYMPHOCYTES # (AUTO) 1.8 10^3/uL (1.5-3.5); LYMPHOCYTES % (AUTO) 27.5 %; MEAN CORPUSCULAR HEMOGLOBIN 21.4 pg (27.0-31.0); MEAN CORPUSCULAR HGB CONC 30.9 g/dL (32.0-36.0); MEAN CORPUSCULAR VOLUME 69.3 fL (81.0-99.0); MEAN PLATELET VOLUME 10.1 fL (7.9-10.8); MONOCYTES # (AUTO) 0.6 10^3/uL (0.0-1.0); MONOCYTES % (AUTO) 8.6 %; NEUTROPHILS % (AUTO) 60.6 %; PLT - PLATELET COUNT 394 10^3/uL (130-450); RED BLOOD COUNT 5.41 10^6/uL (4.20-5.40); RED CELL DISTRIBUTION WIDTH 18.2 % (12.0-15.0); WHITE BLOOD COUNT 6.6 x10^3/uL (4.8-10.8)
[2021-12-11 10:02] LABS: SLIDE REVIEW? Indicated
[2021-12-11 10:07] LABS: ALBUMIN 4.4 g/dL (3.2-5.5); ALBUMIN/GLOBULIN RATIO 1.5 (1.0-2.2); CALCIUM 9.4 mg/dL (8.5-10.3); CREATININE 0.7 mg/dL (0.4-1.0); POTASSIUM 3.9 mmol/L (3.5-5.0); TOTAL PROTEIN 7.4 g/dL (6.7-8.2)
== END 2021-12-11 09:41 | disposition home or self-care (01) ==
LOC: LAB 09:40
PROVIDERS: ATTEND Internal Medicine Rheumatology
DX: M06.9 Rheumatoid arthritis, unspecified (principal); Z79.899 Other long term (current) drug therapy
CPT/HCPCS: 36415; 80053; 85025

== ENCOUNTER 2022-01-05 14:51 | Outpatient (CLI) | payer MEDICARE ==
--- NOTE | 2022-01-06 08:28 | Mammography Report ---
BILATERAL DIGITAL SCREENING MAMMOGRAM 3D/2D: 01/05/2022 CLINICAL: Routine screening. Comparison is made to exams dated: 08/07/2020 mammogram, 10/03/2018 mammogram, 07/02/2016 mammogram, mammogram, 06/14/2013 mammogram, and 06/19/2012 mammogram - [facility]. Th e tissue of both breasts is predominantly fatty. No significant masses, calcifications, or other findings are seen in either breast. There has been no significant interval change. IMPRESSION: NEGATIVE There is no mammographic evidence of malignancy. A 1 year screening mammogram is recommended. Based on the Tyrer Cuzick model (a risk assessment model) the patients lifetime risk is 2.5% and her 10 year risk is 1.7%. According to the ACR, ACS, and NCCN guidelines, an annual breast MRI exam fritz g with mammogram is recommended if the patients lifetime risk is 20% or greater. This exam was interpreted at Station ID: [id number]. NOTE: For mammograms, a report in lay terms will be sent to the patient. Approximately 15% of breast malignancies will not be visualized mammographically. In the management of a palpable breast mass, a negative mammogram must not discourage biopsy of a clinically suspicious lesion. Electronically Signed By: Irish harrell/caleb:01/05/2022 17:35:57 ACR BI-RADS Category 1: Negative 3341F PARENCHYMAL PATTERN: (F) - The breast(s) demonstrate(s) diffuse fatty replacement. BI-RADS CATEGORY: (1) - 1 RECOMMENDATION: (ANNUAL) - Recommend routine annual screening mammography. [id number] 1 year screening LATERALITY: (B)
== END 2022-01-05 14:52 | disposition home or self-care (01) ==
LOC: DI.N 14:51
DX: Z12.31 Encounter for screening mammogram for malignant neoplasm of breast (principal)

== ENCOUNTER 2022-03-26 08:05 | Outpatient (CLI) | payer MEDICARE ==
[2022-03-26 08:28] LABS: BASOPHILS % (AUTO) 0.6 %; EOSINOPHILS # (AUTO) 0.2 10^3/uL (0.0-0.7); EOSINOPHILS % (AUTO) 2.8 %; HCT - HEMATOCRIT 34.3 % (37.0-47.0); HGB - HEMOGLOBIN 10.6 g/dL (12.0-16.0); LYMPHOCYTES # (AUTO) 1.7 10^3/uL (1.5-3.5); LYMPHOCYTES % (AUTO) 23.7 %; MEAN CORPUSCULAR HEMOGLOBIN 21.1 pg (27.0-31.0); MEAN CORPUSCULAR HGB CONC 30.9 g/dL (32.0-36.0); MEAN CORPUSCULAR VOLUME 68.2 fL (81.0-99.0); MEAN PLATELET VOLUME 10.3 fL (7.9-10.8); MONOCYTES # (AUTO) 0.5 10^3/uL (0.0-1.0); MONOCYTES % (AUTO) 7.4 %; NEUTROPHILS # (AUTO) 4.6 10^3/uL (1.5-6.6); NEUTROPHILS % (AUTO) 64.9 %; PLT - PLATELET COUNT 420 10^3/uL (130-450); RED BLOOD COUNT 5.03 10^6/uL (4.20-5.40); RED CELL DISTRIBUTION WIDTH 17.2 % (12.0-15.0)
[2022-03-26 08:36] LABS: ALBUMIN 4.1 g/dL (3.2-5.5); ALBUMIN/GLOBULIN RATIO 1.6 (1.0-2.2); BILIRUBIN,TOTAL 0.9 mg/dL (0.2-1.0); CALCIUM 9.6 mg/dL (8.5-10.3); CREATININE 0.7 mg/dL (0.4-1.0); POTASSIUM 4.3 mmol/L (3.5-5.0); TOTAL PROTEIN 6.7 g/dL (6.7-8.2)
== END 2022-03-26 08:06 | disposition home or self-care (01) ==
LOC: LAB 08:05
PROVIDERS: ATTEND Internal Medicine Rheumatology
DX: M06.9 Rheumatoid arthritis, unspecified (principal); Z79.899 Other long term (current) drug therapy
CPT/HCPCS: 36415; 80053; 85025

== ENCOUNTER 2022-04-21 17:27 | Outpatient (CLI) | payer MEDICARE | END 2022-04-21 23:59 | disposition home or self-care (01) | LOC: LAB.N 17:27 | PROVIDERS: ATTEND Registered Nurse | DX: R07.0 Pain in throat (principal) | CPT/HCPCS: 81599; 87254; 87255 ==

== ENCOUNTER 2022-04-29 08:00 | Outpatient (CLI) | payer MEDICARE ==
[2022-04-29 18:10] LABS: BASOPHILS % (AUTO) 0.3 %; EOSINOPHILS # (AUTO) 0.1 10^3/uL (0.0-0.7); HCT - HEMATOCRIT 35.5 % (37.0-47.0); HGB - HEMOGLOBIN 10.7 g/dL (12.0-16.0); LYMPHOCYTES # (AUTO) 1.2 10^3/uL (1.5-3.5); MEAN CORPUSCULAR HEMOGLOBIN 20.3 pg (27.0-31.0); MEAN CORPUSCULAR HGB CONC 30.1 g/dL (32.0-36.0); MEAN CORPUSCULAR VOLUME 67.4 fL (81.0-99.0); MEAN PLATELET VOLUME 10.7 fL (7.9-10.8); MONOCYTES # (AUTO) 0.5 10^3/uL (0.0-1.0); NEUTROPHILS % (AUTO) 68.5 %; PLT - PLATELET COUNT 417 10^3/uL (130-450); RED BLOOD COUNT 5.27 10^6/uL (4.20-5.40); RED CELL DISTRIBUTION WIDTH 17.3 % (12.0-15.0); WHITE BLOOD COUNT 5.9 x10^3/uL (4.8-10.8)
[2022-04-29 18:28] LABS: ALBUMIN 4.1 g/dL (3.2-5.5); ALBUMIN/GLOBULIN RATIO 1.4 (1.0-2.2); BILIRUBIN,TOTAL 0.3 mg/dL (0.2-1.0); CALCIUM 9.7 mg/dL (8.5-10.3); CREATININE 0.7 mg/dL (0.4-1.0); POTASSIUM 4.2 mmol/L (3.5-5.0); TOTAL PROTEIN 7.1 g/dL (6.7-8.2)
[2022-04-29 19:27] LABS: PLATELET ESTIMATE, MANUAL NORMAL (130-450,000) (NORMAL); PLATELET MORPHOLOGY NORMAL APPEARANCE (NORMAL); SLIDE REVIEW? Indicated
== END 2022-04-29 23:59 | disposition home or self-care (01) ==
LOC: LAB.N 08:00
PROVIDERS: ATTEND Registered Nurse
DX: K13.79 Other lesions of oral mucosa (principal); R07.0 Pain in throat
CPT/HCPCS: 36415; 80053; 85025; 86140

== ENCOUNTER 2022-07-28 09:38 | Outpatient (CLI) | payer MEDICARE ==
[2022-07-28 09:54] LABS: BASOPHILS % (AUTO) 0.7 %; EOSINOPHILS # (AUTO) 0.1 10^3/uL (0.0-0.7); EOSINOPHILS % (AUTO) 2.6 %; HCT - HEMATOCRIT 37.9 % (37.0-47.0); HGB - HEMOGLOBIN 11.6 g/dL (12.0-16.0); LYMPHOCYTES # (AUTO) 1.5 10^3/uL (1.5-3.5); LYMPHOCYTES % (AUTO) 27.7 %; MEAN CORPUSCULAR HEMOGLOBIN 20.8 pg (27.0-31.0); MEAN CORPUSCULAR HGB CONC 30.6 g/dL (32.0-36.0); MEAN CORPUSCULAR VOLUME 67.9 fL (81.0-99.0); MEAN PLATELET VOLUME 10.8 fL (7.9-10.8); MONOCYTES # (AUTO) 0.4 10^3/uL (0.0-1.0); NEUTROPHILS # (AUTO) 3.3 10^3/uL (1.5-6.6); NEUTROPHILS % (AUTO) 60.5 %; PLT - PLATELET COUNT 395 10^3/uL (130-450); RED BLOOD COUNT 5.58 10^6/uL (4.20-5.40); RED CELL DISTRIBUTION WIDTH 17.6 % (12.0-15.0); WHITE BLOOD COUNT 5.5 x10^3/uL (4.8-10.8)
[2022-07-28 10:07] LABS: ALBUMIN 4.1 g/dL (3.2-5.5); ALBUMIN/GLOBULIN RATIO 1.5 (1.0-2.2); CALCIUM 9.3 mg/dL (8.5-10.3); CREATININE 0.7 mg/dL (0.4-1.0); POTASSIUM 4.4 mmol/L (3.5-5.0); TOTAL PROTEIN 6.9 g/dL (6.7-8.2)
== END 2022-07-28 09:39 | disposition home or self-care (01) ==
LOC: LAB 09:38
PROVIDERS: ATTEND Internal Medicine Rheumatology
DX: Z79.899 Other long term (current) drug therapy (principal); M06.9 Rheumatoid arthritis, unspecified
CPT/HCPCS: 36415; 80053; 85025

== ENCOUNTER 2022-09-09 08:46 | Outpatient (CLI) | payer MEDICARE ==
[2022-09-09 08:55] LABS: BASOPHILS % (AUTO) 0.3 %; EOSINOPHILS # (AUTO) 0.2 10^3/uL (0.0-0.7); EOSINOPHILS % (AUTO) 2.6 %; HCT - HEMATOCRIT 36.8 % (37.0-47.0); HGB - HEMOGLOBIN 11.4 g/dL (12.0-16.0); LYMPHOCYTES # (AUTO) 1.4 10^3/uL (1.5-3.5); LYMPHOCYTES % (AUTO) 23.3 %; MEAN CORPUSCULAR VOLUME 67.6 fL (81.0-99.0); MEAN PLATELET VOLUME 10.4 fL (7.9-10.8); MONOCYTES # (AUTO) 0.5 10^3/uL (0.0-1.0); MONOCYTES % (AUTO) 8.2 %; NEUTROPHILS # (AUTO) 3.8 10^3/uL (1.5-6.6); NEUTROPHILS % (AUTO) 65.4 %; PLT - PLATELET COUNT 417 10^3/uL (130-450); RED BLOOD COUNT 5.44 10^6/uL (4.20-5.40); RED CELL DISTRIBUTION WIDTH 16.8 % (12.0-15.0); WHITE BLOOD COUNT 5.8 x10^3/uL (4.8-10.8)
[2022-09-09 08:59] LABS: SLIDE REVIEW? Indicated
[2022-09-09 09:14] LABS: ALBUMIN 4.3 g/dL (3.2-5.5); ALBUMIN/GLOBULIN RATIO 1.5 (1.0-2.2); ALKALINE PHOSPHATASE 82 IU/L (42-121); ALT ALANINE AMINOTRANSFERASE 28 IU/L (10-60); AST ASPARTATE AMINOTRANSFERASE 26 IU/L (10-42); BILIRUBIN,TOTAL 0.9 mg/dL (0.2-1.0); BUN - BLOOD UREA NITROGEN 15 mg/dL (6-20); CALCIUM 9.8 mg/dL (8.5-10.3); CARBON DIOXIDE - CO2 27 mmol/L (21-32); CHLORIDE 106 mmol/L (101-111); CHOL/HDL RATIO 2.7 (<4.4); CHOLESTEROL 261 mg/dL; CREATININE 0.7 mg/dL (0.4-1.0); GFR - MDRD 82 (>89); GLUCOSE 101 mg/dL (70-100); HDL CHOLESTEROL 97 mg/dL; LDL CHOLESTEROL,CALCULATED 155 mg/dL; LDL/HDL RATIO 1.6 (<4.4); POTASSIUM 4.2 mmol/L (3.5-5.0); SODIUM 141 mmol/L (135-145); TOTAL PROTEIN 7.1 g/dL (6.7-8.2); TRIGLYCERIDES 47 mg/dL; VLDL CHOLESTEROL 9 mg/dL
[2022-09-09 09:25] LABS: THYROID STIMULATING HORMONE 2.61 uIU/mL (0.34-5.60)
[2022-09-09 09:44] LABS: PLATELET ESTIMATE, MANUAL NORMAL (130-450,000) (NORMAL); PLATELET MORPHOLOGY NORMAL APPEARANCE (NORMAL)
== END 2022-09-09 08:47 | disposition home or self-care (01) ==
LOC: LAB 08:46
PROVIDERS: ATTEND Family Medicine
DX: M06.9 Rheumatoid arthritis, unspecified (principal); M16.11 Unilateral primary osteoarthritis, right hip; I26.99 Other pulmonary embolism without acute cor pulmonale; J45.909 Unspecified asthma, uncomplicated; D56.3 Thalassemia minor; E78.5 Hyperlipidemia, unspecified; Z96.641 Presence of right artificial hip joint
CPT/HCPCS: 36415; 80053; 80061; 83721; 84443; 85025

== ENCOUNTER 2022-11-26 19:07 | Emergency (ER) | payer MEDICARE ==
--- NOTE | 2022-11-26 20:00 | ED Physician Documentation ---
PD HPI ABD PAIN - Stated complaint Stated Complaint: LF FLANK PAIN - Chief complaint Chief Complaint: Abd Pain - History obtained from History obtained from: Patient - Additional information Additional information: 72-year-old woman with history of rheumatoid arthritis and remote diverticulitis presents with left-sided abdominal pain starting last night. It is a crampy sharp pain that is nonradiating. She could not get comfortable. She tried Tylenol which was mildly helpful. She denies fevers or chills. Although she had diverticulitis once it was 10 to 15 years ago and she does not recall w hether this is similar to that. She had a small bowel movement that did not change the pain. She has poor appetite and mild nausea. Declines pain medication on initial evaluation. No history of abdominal surgeries. PD PAST MEDICAL HISTORY - Past Medical History Cardiovascular: None Respiratory: Asthma Endocrine/Autoimmune: None GI: None : None HEENT: Chronic vision loss Psych: None Musculoskeletal: Rheumatoid arthritis Derm: None - Past Surgical History Past Surgical History: Yes General: Colonoscopy Ortho: Hip replacement /[employer]: Oophrectomy HEENT:  - Present Medications Home Medications: Ambulatory Orders Medication Instructions Recorded Confirmed Albuterol Sulfate [Proair Hfa 1 - 2 puffs INH Q4H PRN 04/11/17 12/30/20 Inhaler] Cetirizine [ZyrTEC] 10 mg PO DAILY 04/11/17 12/30/20 Fluticasone [Flonase] 1 sprays ROSALBA DAILY 04/11/17 12/30/20 Leucovorin Calcium 5 mg PO OAW 04/11/17 12/30/20 Montelukast [Singulair] 10 mg PO QPM 04/11/17 12/30/20 Methotrexate [Methotrexate Sodium] 15 mg PO OAW 12/03/20 12/04/20 Acetaminophen [Tylenol] 650 mg PO TID PRN 12/04/20 12/30/20 Acyclovir 400 mg PO DAILY PRN 12/04/20 12/30/20 Fluticasone Propion/Salmeterol 1 puffs INH BID 12/04/20 12/30/20 [Wixela 250-50 Inhub] Latanoprost/Pf [Latanoprost 0.005% 1 drops EACHEYE QPM 12/04/20 12/30/20 Eye Drop] Tofacitinib Citrate [Xeljanz Xr] 11 mg PO DAILY 12/04/20 12/30/20 Rivaroxaban [Xarelto] 20 mg PO DAILY #30 tablet 12/05/20 12/30/20 Amox/Clav 875/125 [Augmentin] 1 each PO Q12H #20 tablet 11/26/22 - Allergies Allergies/Adverse Reactions: Allergies Allergy/AdvReac Type Severity Reaction Status Date / Time adhesive tape Allergy Rash Verified 12/29/20 22:44 Sulfa (Sulfonamide Allergy Rash Verified 12/29/20 22:44 Antibiotics) - Social History Does the pt smoke?: No Smoking Status: Never smoker Does the pt drink ETOH?: No Does the pt have substance abuse?: No - Immunizations Immunizations are current?: Yes - POLST Patient has POLST: Yes POLST Status: Full Code PD ED PE NORMAL - Vitals Vital signs reviewed: Yes - General General: Alert and oriented X 3, No acute distress - Abdomen Abdomen: Normal bowel sounds, Soft, Non tender - Derm Derm: Other (No shingles rash on the left) - Neuro Neuro: Alert and oriented X 3, Normal speech Results - Vitals Vitals: Vital Signs - 24 hr 11/26/22 11/26/22 11/26/22 19:39 20:41 22:23 Temperature 37.7 C Heart Rate 85 87 76 Respiratory 16 16 18 Rate Blood Pressure 169/88 H 148/87 H 154/86 H O2 Saturation 100 94 99 Oxygen O2 Source Room air - Labs Labs: Laboratory Tests 11/26/22 11/26/22 11/26/22 20:05 20:05 20:05 WBC 10.0 RBC 5.24 Hgb 11.0 L Hct 35.5 L MCV 67.7 L MCH 21.0 L MCHC 31.0 L RDW 16.6 H Plt Count 382 MPV 10.2 Neut # (Auto) 7.9 H Lymph # (Auto) 1.3 L [place] # (Auto) 0.7 Eos # (Auto) 0.1 Baso # (Auto) 0.0 Absolute Nucleated RBC 0.00 Nucleated RBC % 0.0 Manual Slide Review Indicated Platelet Estimate NORMAL (130-450,000) Platelet Morphology NORMAL APPEARANCE RBC Morph Micro Appear 1+ POLYCHROMASIA Sodium 136 Potassium 3.8 Chloride 103 Carbon Dioxide 25 Anion Gap 8.0 BUN 13 Creatinine 0.7 Estimated GFR (MDRD) 82 L Glucose 125 H Calcium 9.3 Total Bilirubin 0.9 AST 16 ALT 18 Alkaline Phosphatase 89 Total Protein 7.2 Albumin 4.2 Globulin 3.0 Albumin/Globulin Ratio 1.4 Lipase 29 Urine Color YELLOW Urine Clarity CLEAR Urine pH 5.5 Ur Specific [place] 1.015 Urine Protein NEGATIVE Urine Glucose (UA) NEGATIVE Urine Ketones TRACE Urine Occult Blood TRACE-LYSE Urine Nitrite NEGATIVE Urine Bilirubin NEGATIVE Urine Urobilinogen 0.2 (NORMAL) Ur Leukocyte Esterase TRACE H Urine RBC 0-5 Urine WBC 6-10 H Ur Squamous Epith Cells RARE Squamous Urine Bacteria Rare Ur Microscopic Review INDICATED Urine Culture Comments INDICATED - Rads (name of study) CT A/P Relevant Findings:: Final report received (Diverticulitis with other incidental findings), EMP independent interpretation of test PD Medical Decision Making - ED course ED course: 72-year-old woman with recurrent diverticulitis. Benign exam and CBC showing chronic anemia without significant leukocytosis. CMP normal. Urinalysis with few white cells. She is started on Augmentin and discussed need for liquid diet for the next 24 hours and a low residue diet for 2 days after that as well as follow-up colonoscopy. Departure - Departure Disposition: 01 Home, Self Care Clinical Impression: Diverticulitis of gastrointestinal tract Condition: Good Record reviewed to determine appropriate education?: Yes Instructions: Diet Low Residue, ED Diverticulitis, ED Diet Clear Liquid Prescriptions: Amox/Clav 875/125 [Augmentin] 1 each PO Q12H #20 tablet Comments: Do a clear liquid diet for the next 24 hours, after that a low residue diet for the next 2 days after that. See attached instruction sheet for details. You should have a colonoscopy in no less than 2 months but no more than 6 months. The Discharge Date/Time: 11/26/22 22:23
[2022-11-26 20:14] LABS: BASOPHILS % (AUTO) 0.3 %; EOSINOPHILS # (AUTO) 0.1 10^3/uL (0.0-0.7); EOSINOPHILS % (AUTO) 0.8 %; HCT - HEMATOCRIT 35.5 % (37.0-47.0); LYMPHOCYTES # (AUTO) 1.3 10^3/uL (1.5-3.5); LYMPHOCYTES % (AUTO) 12.7 %; MEAN CORPUSCULAR VOLUME 67.7 fL (81.0-99.0); MEAN PLATELET VOLUME 10.2 fL (7.9-10.8); MONOCYTES # (AUTO) 0.7 10^3/uL (0.0-1.0); MONOCYTES % (AUTO) 6.8 %; NEUTROPHILS # (AUTO) 7.9 10^3/uL (1.5-6.6); NEUTROPHILS % (AUTO) 79.1 %; PLT - PLATELET COUNT 382 10^3/uL (130-450); RED BLOOD COUNT 5.24 10^6/uL (4.20-5.40); RED CELL DISTRIBUTION WIDTH 16.6 % (12.0-15.0)
[2022-11-26] MEDS ORDERED: iohexoL-300 100 ML VIAL ONE (20:15)
[2022-11-26 20:25] LABS: ALBUMIN 4.2 g/dL (3.2-5.5); ALBUMIN/GLOBULIN RATIO 1.4 (1.0-2.2); BILIRUBIN,TOTAL 0.9 mg/dL (0.2-1.0); BILIRUBIN,URINE NEGATIVE (NEGATIVE); CALCIUM 9.3 mg/dL (8.5-10.3); CREATININE 0.7 mg/dL (0.4-1.0); GLUCOSE, URINE (UA) NEGATIVE (NEGATIVE); KETONES,URINE (UA) TRACE mg/dL (NEGATIVE); LEUKOCYTE ESTERASE, URINE TRACE (NEGATIVE); NITRITE,URINE NEGATIVE (NEGATIVE); OCCULT BLOOD,URINE TRACE-LYSE (NEGATIVE); PH,URINE 5.5 PH (5.0-7.5); POTASSIUM 3.8 mmol/L (3.5-5.0); PROTEIN,URINE NEGATIVE (NEGATIVE); TOTAL PROTEIN 7.2 g/dL (6.7-8.2); UROBILINOGEN,URINE 0.2 (NORMAL) E.U./dL (NORMAL)
[2022-11-26 20:28] LABS: CLARITY,URINE CLEAR (CLEAR)
[2022-11-26 20:35] LABS: BACTERIA,URINE Rare /HPF (None Seen); RBC,URINE 0-5 /HPF (0-5); SQUAMOUS EPITHELIAL CELL,UR RARE Squamous (<= Few)
[2022-11-26 21:02] LABS: PLATELET ESTIMATE, MANUAL NORMAL (130-450,000) (NORMAL); PLATELET MORPHOLOGY NORMAL APPEARANCE (NORMAL); SLIDE REVIEW? Indicated
[2022-11-26] MEDS ORDERED: iohexoL-300 100 ML VIAL IVP ONE (21:11)
--- NOTE | 2022-11-26 21:52 | CT Report ---
PROCEDURE: ABDOMEN/PELVIS W INDICATIONS: IV ONLY LLQ PAIN CONTRAST: 100 ML OMNI 300 TECHNIQUE: After the administration of IV contrast, 5 mm thick sections acquired from the diaphragms to the symp hysis. 5 mm thick coronal and sagittal reformats were acquired. For radiation dose reduction, the f ollowing was used: automated exposure control, adjustment of mA and/or kV according to patient size. COMPARISON: None. FINDINGS: Image quality: There is artifact associated with the metallic hardware. Lung bases and heart: Unremarkable. A small hiatal hernia is incidentally noted. Liver: No solid mass. Diffuse fatty liver infiltration can be seen. Gallbladder and biliary tree: Within normal limits. Spleen: No splenomegaly. An accessory splenule is incidentally noted along the hilum of the primary spleen. Pancreas: No pancreatic ductal dilation. Adrenals: No adrenal nodule. Kidneys and ureters: No hydronephrosis. No renal cystic lesion which requires follow up. No solid mas s. Bowel and peritoneum: There is moderate wall thickening seen involving the descending colon, with esthela rounding inflammatory change. Diverticula formation can be seen within this region. No free air or si gnificant free fluid can be seen. No peritoneal abscess is seen. More abundant diverticula formation can be seen more distally within the colon. The more proximal colon is within normal limits. No dilated loops of small bowel are seen. No significant gastric abnormality is seen. Lymph nodes: No central or retroperitoneal adenopathy. Vessels: No infrarenal aortic aneurysm. Atherosclerotic calcification is seen. PELVIS Reproductive organs: Within normal limits for age, with an atrophic uterus seen. No adnexal masses ar e seen on either side. Bladder: No abnormal wall thickening, accounting for underdistension. Pelvic lymph nodes: No pelvic adenopathy by size criteria. Bones: No aggressive osseous abnormality. Presumed hemangiomas can be seen involving L2 and L3. Focal L5-S1 degenerative change is seen. Mild levoconvex scoliotic curvature is seen. Right hip arthropl asty hardware is seen. Other: No significant ventral or inguinal hernia. IMPRESSION: Descending colon diverticulitis, without findings of perforation or abscess. A colonoscopy is recommended for further evaluation, following treatment of the patient's current cli nical episode, for evaluation of a potential underlying mass. Additional findings: Small hiatal hernia Fatty liver infiltration Accessory splenule Presumed L2 and L3 vertebral body hemangiomas Focal L5-S1 degenerative change Levoconvex scoliotic curvature Right hip arthroplasty hardware Reviewed by: Grupo Carrasco MD on 11/26/2022 8:50 PM AKDT Approved by: Grupo Carrasco MD on 11/26/2022 8:50 PM AKDARIN Station ID: [id number]
[2022-11-26] MEDS ORDERED: AMOX/CLAV 875 MG/125 MG TABLET PO STA (22:03)
[2022-11-26 22:27] VITALS: BP 154/86
== END 2022-11-26 22:23 | disposition home or self-care (01) ==
LOC: ED 19:07
DX: K57.12 Diverticulitis of small intestine without perforation or abscess without bleeding (principal)
CPT/HCPCS: 36415; 74177; 80053; 81001; 83690; 85025; 87086; 99283; 99284; A9270; Q9967; 81003

== ENCOUNTER 2022-12-10 08:52 | Outpatient (CLI) | payer MEDICARE ==
[2022-12-10 09:02] LABS: BASOPHILS % (AUTO) 0.4 %; EOSINOPHILS # (AUTO) 0.2 10^3/uL (0.0-0.7); EOSINOPHILS % (AUTO) 2.2 %; HCT - HEMATOCRIT 33.8 % (37.0-47.0); HGB - HEMOGLOBIN 10.6 g/dL (12.0-16.0); LYMPHOCYTES # (AUTO) 1.8 10^3/uL (1.5-3.5); LYMPHOCYTES % (AUTO) 26.2 %; MEAN CORPUSCULAR HEMOGLOBIN 21.1 pg (27.0-31.0); MEAN CORPUSCULAR HGB CONC 31.4 g/dL (32.0-36.0); MEAN CORPUSCULAR VOLUME 67.3 fL (81.0-99.0); MEAN PLATELET VOLUME 10.6 fL (7.9-10.8); MONOCYTES # (AUTO) 0.5 10^3/uL (0.0-1.0); MONOCYTES % (AUTO) 7.5 %; NEUTROPHILS # (AUTO) 4.3 10^3/uL (1.5-6.6); NEUTROPHILS % (AUTO) 63.3 %; PLT - PLATELET COUNT 416 10^3/uL (130-450); RED BLOOD COUNT 5.02 10^6/uL (4.20-5.40); RED CELL DISTRIBUTION WIDTH 16.5 % (12.0-15.0); WHITE BLOOD COUNT 6.8 x10^3/uL (4.8-10.8)
[2022-12-10 09:16] LABS: ALBUMIN 4.1 g/dL (3.2-5.5); ALBUMIN/GLOBULIN RATIO 1.6 (1.0-2.2); BILIRUBIN,TOTAL 0.8 mg/dL (0.2-1.0); CALCIUM 9.1 mg/dL (8.5-10.3); CREATININE 0.6 mg/dL (0.4-1.0); POTASSIUM 4.2 mmol/L (3.5-5.0); TOTAL PROTEIN 6.7 g/dL (6.7-8.2)
== END 2022-12-10 08:53 | disposition home or self-care (01) ==
LOC: LAB 08:52
PROVIDERS: ATTEND Internal Medicine Rheumatology
DX: Z79.899 Other long term (current) drug therapy (principal); M06.9 Rheumatoid arthritis, unspecified
CPT/HCPCS: 36415; 80053; 85025

== ENCOUNTER 2023-05-18 09:12 | Day surgery (SDC) | payer MEDICARE ==
[2023-05-18] MEDS ORDERED: LACTATED RINGERS 1,000 ML IV ONE (09:45)
--- NOTE | 2023-05-18 11:11 | ANESTHESIA ---
Pre-Anesthesia VS, & Labs - Diagnosis screening colonoscopy - Procedure colonoscopy Vital Signs: Temp Pulse Resp BP Pulse Ox O2 Flow Rate 36.9 C 80 14 147/91 H 100 05/18/23 09:36 05/18/23 09:36 05/18/23 09:36 05/18/23 09:36 05/18/23 09:36 Height: 5 ft 10 in Weight (kg): 72.4 kg Body Mass Index: 22.8 BMI Classification: Normal - NPO >8 hours - Is Patient ?: No Home Medications and Allergies Home Medications: Ambulatory Orders Fluticasone Propion/Salmeterol [Wixela 250-50 Inhub] 1 each IH BID 05/18/23 Albuterol Sulfate [Proair Hfa Inhaler] 1 - 2 puffs INH Q4H PRN 04/11/17 Cetirizine [ZyrTEC] 10 mg PO DAILY 04/11/17 Fluticasone [Flonase] 1 sprays ROSALBA DAILY 04/11/17 Leucovorin Calcium 5 mg PO OAW 04/11/17 Montelukast [Singulair] 10 mg PO QPM 04/11/17 Methotrexate [Methotrexate Sodium] 25 mg PO OAW 12/03/20 Acetaminophen [Tylenol] 650 mg PO TID PRN 12/04/20 Acyclovir 400 mg PO DAILY PRN 12/04/20 Fluticasone Propion/Salmeterol [Wixela 250-50 Inhub] 1 puffs INH BID 12/04/20 Latanoprost/Pf [Latanoprost 0.005% Eye Drop] 1 drops EACHEYE QPM 12/04/20 Tofacitinib Citrate [Xeljanz Xr] 11 mg PO DAILY 12/04/20 Fluticasone Propion/Salmeterol [Wixela 250-50 Inhub] 1 each IH BID 05/18/23 Allergies/Adverse Reactions: Allergies Allergy/AdvReac Type Severity Reaction Status Date / Time adhesive tape Allergy Rash Verified 12/29/20 22:44 Sulfa (Sulfonamide Allergy Rash Verified 12/29/20 22:44 Antibiotics) Anes History & Medical History - Anesthetic History Anesthesia Complications: reports: Post-Operative Nausea/Vomiting - Medical History Cardiovascular: reports: None Pulmonary: reports: Asthma Gastrointestinal: reports: None Urinary: reports: None Neuro: reports: None Musculoskeletal: reports: Rheumatoid arthritis Endocrine/Autoimmune: reports: None Skin: reports: None Smoking Status: Never smoker Psychosocial: reports: Alcohol (2-3 glasses wine per week) History of Cancer?: No - Surgical History General: reports: Colonoscopy Eyes Ears Nose Throat (EENT): Gynecologic: reports: Oophrectomy Orthopedic: reports: Hip replacement Exam General: Alert, Oriented x3, Cooperative, No acute distress Dental: WNL Mouth Openin Fingerbreadth Neck Mobility: Normal Mallampati classification: II Thyromental Distance: 4-6 cm Mental/Cognitive Status: Alert/Oriented X3, Normal for patient Plan Anesthesia Type: General, Total IV Consent for Procedure(s) Verified and Reviewed: Yes Code Status: Attempt Resuscitation ASA classification: 2-Mild systemic disease Is this case an emergency?: No
[2023-05-18] MEDS ORDERED: ONDANSETRON 4 MG/2 ML VIAL ONE (11:40)
[2023-05-18] MEDS ORDERED: GLYCOPYRROLATE 1 MG/5 ML VIAL ONE (11:47)
[2023-05-18] MEDS ORDERED: LACTATED RINGERS 100 ML IV ONE (12:02)
[2023-05-18] MEDS ORDERED: PROPOFOL 500 MG/50 ML 500 MG/50 ML VIAL ONE (12:24)
[2023-05-18 12:42] VITALS: BP 157/76; O2SAT 98
--- NOTE | 2023-05-18 16:55 | ANESTHESIA POST OP EVALUATION ---
Anesthesia Post Eval - Post Anesthesia Eval Vitals: Last Vital Signs Temp 37.1 C 05/18/23 12:31 Pulse 93 05/18/23 12:31 Resp 16 05/18/23 12:31 BP 157/76 H 05/18/23 12:31 Pulse Ox 98 05/18/23 12:31 O2 Flow Rate CV Function Including HR & BP: Stable Pain Control: Satisfactory Nausea & Vomiting: Negative Mental Status: Baseline Respiratory Status: Airway Patent Hydration Status: Satisfactory Anesthesia Complications: None
== END 2023-05-18 09:13 | disposition home or self-care (01) ==
LOC: SDS 09:12
PROVIDERS: ATTEND Surgery
PROC: 0DBL8ZZ Excision of Transverse Colon, Via Natural or Artificial Opening Endoscopic (ICD-10-PCS; principal; 2023-05-18 10:15)
DX: Z12.11 Encounter for screening for malignant neoplasm of colon (principal); D12.3 Benign neoplasm of transverse colon; K57.30 Diverticulosis of large intestine without perforation or abscess without bleeding; D56.3 Thalassemia minor; Z87.891 Personal history of nicotine dependence
CPT/HCPCS: 45380; J7120

== ENCOUNTER 2023-06-17 08:16 | Outpatient (CLI) | payer MEDICARE ==
[2023-06-17 08:27] LABS: BASOPHILS % (AUTO) 0.5 %; EOSINOPHILS # (AUTO) 0.1 10^3/uL (0.0-0.7); EOSINOPHILS % (AUTO) 2.2 %; HCT - HEMATOCRIT 34.6 % (37.0-47.0); HGB - HEMOGLOBIN 10.7 g/dL (12.0-16.0); LYMPHOCYTES # (AUTO) 1.4 10^3/uL (1.5-3.5); LYMPHOCYTES % (AUTO) 23.7 %; MEAN CORPUSCULAR HEMOGLOBIN 20.7 pg (27.0-31.0); MEAN CORPUSCULAR HGB CONC 30.9 g/dL (32.0-36.0); MEAN CORPUSCULAR VOLUME 67.1 fL (81.0-99.0); MEAN PLATELET VOLUME 10.2 fL (7.9-10.8); MONOCYTES # (AUTO) 0.4 10^3/uL (0.0-1.0); MONOCYTES % (AUTO) 6.3 %; NEUTROPHILS # (AUTO) 3.9 10^3/uL (1.5-6.6); PLT - PLATELET COUNT 362 10^3/uL (130-450); RED BLOOD COUNT 5.16 10^6/uL (4.20-5.40); RED CELL DISTRIBUTION WIDTH 17.1 % (12.0-15.0); WHITE BLOOD COUNT 5.9 x10^3/uL (4.8-10.8)
[2023-06-17 08:38] LABS: SLIDE REVIEW? Indicated
[2023-06-17 08:43] LABS: ALBUMIN 4.4 g/dL (3.2-5.5); ALBUMIN/GLOBULIN RATIO 2.3 (1.0-2.2); BILIRUBIN,TOTAL 0.8 mg/dL (0.2-1.0); CALCIUM 9.8 mg/dL (8.5-10.3); CREATININE 0.7 mg/dL (0.6-1.3); POTASSIUM 3.9 mmol/L (3.5-4.5); TOTAL PROTEIN 6.3 g/dL (6.4-8.9)
[2023-06-17 08:46] LABS: PLATELET ESTIMATE, MANUAL NORMAL (130-450,000) (NORMAL); PLATELET MORPHOLOGY NORMAL APPEARANCE (NORMAL)
== END 2023-06-17 08:17 | disposition home or self-care (01) ==
LOC: LAB 08:16
PROVIDERS: ATTEND Internal Medicine Rheumatology
DX: M06.9 Rheumatoid arthritis, unspecified (principal); Z79.899 Other long term (current) drug therapy
CPT/HCPCS: 36415; 80053; 85025

== ENCOUNTER 2023-09-20 09:03 | Outpatient (CLI) | payer MEDICARE ==
[2023-09-20 09:13] LABS: BASOPHILS % (AUTO) 0.4 %; EOSINOPHILS # (AUTO) 0.1 10^3/uL (0.0-0.7); EOSINOPHILS % (AUTO) 1.6 %; HCT - HEMATOCRIT 37.4 % (37.0-47.0); HGB - HEMOGLOBIN 11.4 g/dL (12.0-16.0); LYMPHOCYTES # (AUTO) 1.4 10^3/uL (1.5-3.5); LYMPHOCYTES % (AUTO) 19.2 %; MEAN CORPUSCULAR HEMOGLOBIN 21.1 pg (27.0-31.0); MEAN CORPUSCULAR HGB CONC 30.5 g/dL (32.0-36.0); MEAN CORPUSCULAR VOLUME 69.1 fL (81.0-99.0); MEAN PLATELET VOLUME 9.8 fL (7.9-10.8); MONOCYTES # (AUTO) 0.6 10^3/uL (0.0-1.0); MONOCYTES % (AUTO) 8.1 %; NEUTROPHILS # (AUTO) 5.2 10^3/uL (1.5-6.6); PLT - PLATELET COUNT 411 10^3/uL (130-450); RED BLOOD COUNT 5.41 10^6/uL (4.20-5.40); RED CELL DISTRIBUTION WIDTH 18.3 % (12.0-15.0); WHITE BLOOD COUNT 7.4 x10^3/uL (4.8-10.8)
[2023-09-20 09:25] LABS: ALBUMIN 4.6 g/dL (3.2-5.5); ALBUMIN/GLOBULIN RATIO 2.1 (1.0-2.2); BILIRUBIN,TOTAL 0.7 mg/dL (0.2-1.0); CREATININE 0.7 mg/dL (0.6-1.3); POTASSIUM 4.4 mmol/L (3.5-4.5); TOTAL PROTEIN 6.8 g/dL (6.4-8.9)
== END 2023-09-20 09:04 | disposition home or self-care (01) ==
LOC: LAB 09:03
PROVIDERS: ATTEND Internal Medicine Rheumatology
DX: Z79.899 Other long term (current) drug therapy (principal); M06.9 Rheumatoid arthritis, unspecified
CPT/HCPCS: 36415; 80053; 85025

== ENCOUNTER 2023-12-08 07:31 | Outpatient (CLI) | payer MEDICARE ==
[2023-12-08 07:42] LABS: BASOPHILS % (AUTO) 0.4 %; EOSINOPHILS # (AUTO) 0.2 10^3/uL (0.0-0.7); EOSINOPHILS % (AUTO) 2.7 %; HCT - HEMATOCRIT 36.2 % (37.0-47.0); HGB - HEMOGLOBIN 10.9 g/dL (12.0-16.0); LYMPHOCYTES # (AUTO) 1.5 10^3/uL (1.5-3.5); LYMPHOCYTES % (AUTO) 26.8 %; MEAN CORPUSCULAR HEMOGLOBIN 20.7 pg (27.0-31.0); MEAN CORPUSCULAR HGB CONC 30.1 g/dL (32.0-36.0); MEAN CORPUSCULAR VOLUME 68.7 fL (81.0-99.0); MEAN PLATELET VOLUME 9.7 fL (7.9-10.8); MONOCYTES # (AUTO) 0.5 10^3/uL (0.0-1.0); MONOCYTES % (AUTO) 8.7 %; NEUTROPHILS # (AUTO) 3.4 10^3/uL (1.5-6.6); PLT - PLATELET COUNT 371 10^3/uL (130-450); RED BLOOD COUNT 5.27 10^6/uL (4.20-5.40); RED CELL DISTRIBUTION WIDTH 17.8 % (12.0-15.0); SLIDE REVIEW? Indicated; WHITE BLOOD COUNT 5.5 x10^3/uL (4.8-10.8)
[2023-12-08 07:53] LABS: ALBUMIN 4.4 g/dL (3.2-5.5); ALBUMIN/GLOBULIN RATIO 1.9 (1.0-2.2); BILIRUBIN,TOTAL 0.7 mg/dL (0.2-1.0); CALCIUM 9.8 mg/dL (8.5-10.3); CREATININE 0.7 mg/dL (0.6-1.3); POTASSIUM 4.1 mmol/L (3.5-4.5); TOTAL PROTEIN 6.7 g/dL (6.4-8.9)
[2023-12-08 08:10] LABS: PLATELET ESTIMATE, MANUAL NORMAL (130-450,000) (NORMAL); PLATELET MORPHOLOGY NORMAL APPEARANCE (NORMAL)
== END 2023-12-08 07:32 | disposition home or self-care (01) ==
LOC: LAB 07:31
PROVIDERS: ATTEND Internal Medicine Rheumatology
DX: M06.9 Rheumatoid arthritis, unspecified (principal); Z79.899 Other long term (current) drug therapy
CPT/HCPCS: 36415; 80053; 85025

== ENCOUNTER 2024-03-08 09:37 | Outpatient (CLI) | payer MEDICARE ==
[2024-03-08 09:59] LABS: BASOPHILS % (AUTO) 0.4 %; EOSINOPHILS # (AUTO) 0.2 10^3/uL (0.0-0.7); EOSINOPHILS % (AUTO) 2.9 %; HCT - HEMATOCRIT 35.4 % (37.0-47.0); HGB - HEMOGLOBIN 10.7 g/dL (12.0-16.0); LYMPHOCYTES # (AUTO) 1.1 10^3/uL (1.5-3.5); LYMPHOCYTES % (AUTO) 21.9 %; MEAN CORPUSCULAR HEMOGLOBIN 20.8 pg (27.0-31.0); MEAN CORPUSCULAR HGB CONC 30.2 g/dL (32.0-36.0); MEAN CORPUSCULAR VOLUME 68.9 fL (81.0-99.0); MEAN PLATELET VOLUME 10.4 fL (7.9-10.8); MONOCYTES # (AUTO) 0.5 10^3/uL (0.0-1.0); MONOCYTES % (AUTO) 8.8 %; NEUTROPHILS # (AUTO) 3.4 10^3/uL (1.5-6.6); NEUTROPHILS % (AUTO) 65.8 %; PLT - PLATELET COUNT 381 10^3/uL (130-450); RED BLOOD COUNT 5.14 10^6/uL (4.20-5.40); RED CELL DISTRIBUTION WIDTH 17.2 % (12.0-15.0); WHITE BLOOD COUNT 5.1 x10^3/uL (4.8-10.8)
[2024-03-08 10:19] LABS: ALBUMIN 4.2 g/dL (3.2-5.5); ALBUMIN/GLOBULIN RATIO 1.8 (1.0-2.2); ALKALINE PHOSPHATASE 78 IU/L (42-121); ALT ALANINE AMINOTRANSFERASE 19 IU/L (10-60); AST ASPARTATE AMINOTRANSFERASE 17 IU/L (10-42); BILIRUBIN,TOTAL 0.8 mg/dL (0.2-1.0); BUN - BLOOD UREA NITROGEN 15 mg/dL (6-20); CALCIUM 9.3 mg/dL (8.5-10.3); CARBON DIOXIDE - CO2 27 mmol/L (21-32); CHLORIDE 106 mmol/L (101-111); CHOL/HDL RATIO 2.4 (<4.4); CHOLESTEROL 227 mg/dL; CREATININE 0.7 mg/dL (0.6-1.3); GFR - MDRD 82 (>89); GLUCOSE 95 mg/dL (74-104); HDL CHOLESTEROL 96 mg/dL; LDL CHOLESTEROL,CALCULATED 121 mg/dL; LDL/HDL RATIO 1.3 (<4.4); POTASSIUM 4.2 mmol/L (3.5-4.5); SODIUM 137 mmol/L (135-145); TOTAL PROTEIN 6.5 g/dL (6.4-8.9); TRIGLYCERIDES 52 mg/dL; VLDL CHOLESTEROL 10 mg/dL
[2024-03-08 10:38] LABS: THYROID STIMULATING HORMONE 1.69 uIU/mL (0.34-5.60)
== END 2024-03-08 09:38 | disposition home or self-care (01) ==
LOC: LAB 09:37
PROVIDERS: ATTEND Family Medicine
DX: E78.5 Hyperlipidemia, unspecified (principal); M17.12 Unilateral primary osteoarthritis, left knee; D12.6 Benign neoplasm of colon, unspecified; R03.0 Elevated blood-pressure reading, without diagnosis of hypertension; Z96.641 Presence of right artificial hip joint; M06.9 Rheumatoid arthritis, unspecified; J45.909 Unspecified asthma, uncomplicated; D56.3 Thalassemia minor
CPT/HCPCS: 36415; 80053; 80061; 83721; 84443; 85025